=== PATIENT | male | born 1965 | race Two or more races ===

== ENCOUNTER 2025-01-24 05:55 | Inpatient (IN) | payer MEDICARE, SELFPAY ==
[2025-01-24] VITALS (49 sets, daily range): BP systolic 119–167; BP diastolic 67–125; PULSE 68–96; RESP 13–24; TEMP 36.2–36.7; O2SAT 93–100; BMI 55.0
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
--- NOTE | ~2025-01-24 | CT_ITS ---
EXAMINATION: CTA chest PE protocol DATE: 01/24/2025 07:39 INDICATION: Shortness of breath and hypoxia TECHNIQUE: Computed tomography (CT) pulmonary angiogram of the chest was performed with 100 mL Omnipaque-350 intravenous contrast. Additional 3D reconstructions utilizing coronal maximum intensity projection (MIP) were performed. Automated exposure control and iterative reconstruction technique were employed. The dose-length product was 1167.14 mGy-cm. COMPARISON: None FINDINGS: No evident pulmonary embolism. Sensitivity decreased in some of the smaller subsegmental pulmonary arteries due to adequate but suboptimal contrast opacification and small amount scattered motion artifact. Enlargement of the main pulmonary artery and right pulmonary arteries consistent with pulmonary a rterial hypertension. Basilar predominant diffuse bilateral smooth septal line thickening and few scattered groundglass opacities consistent with mild to moderate pulmonary edema. Trace bilateral pleural effusions. No correlate for the likely artifactual masslike opacity medial left lower lung zone on the prior radiographs. Mild cardiomegaly. No pericardial effusion. Thoracic aorta is normal in caliber. Calcified right hilar lymph nodes consistent with old granulomatous disease. No pathologically enlarged thoracic lymphadenopathy. Severe lower cervical and moderate thoracic spondylosis. IMPRESSION: 1. No pulmonary embolism. Sensitivity decreased in some of the smaller subsegmental pulmonary arteries due to combination of suboptimal contrast opacification and small mild respiratory motion. 2. Congestive heart failure with cardiomegaly and mild to moderate pulmonary edema. 3. Enlargement of the central and right pulmonary arteries consistent with pulmonary arterial hypertension. Reviewed, dictated and finalized at location A. IMPRESSION: 1. No pulmonary embolism. Sensitivity decreased in some of the smaller subsegme ntal pulmonary arteries due to combination of suboptimal contrast opacification and small mild respiratory motion. 2. Congestive heart failure with cardiomegaly and mild to moderate pulmonary ed mary jane. 3. Enlargement of the central and right pulmonary arteries consistent with pulm onary arterial hypertension.
--- NOTE | ~2025-01-24 | XR_ITS ---
EXAMINATION: XR chest 1V portable DATE: 01/24/2025 06:48 INDICATION: Shortness of breath TECHNIQUE: frontal view of the chest was obtained. COMPARISON: None FINDINGS: With basilar predominant diffuse increased interstitial pattern throughout both lungs. There are mild patchy airspace opacities in the bilateral lower lung zones. Indeterminate 3.5 cm masslike opacity projecting over the heart and the medial left lower lung zone. Calcified nodule in the lateral left lower lung zone and a couple calcified left hilar lymph nodes consistent with old granulomatous disease. No pneumothorax. Possible small left pleural effusion. Borderline heart size accounting for AP technique. IMPRESSION: 1. Likely congestive heart failure with cardiomegaly and mild to moderate basilar predominant pulmonary edema. Superimposed pneumonia not excludable. 2. Indeterminate 3.5 cm masslike opacity projecting over the medial left lower lung zone. Would recommend chest CT for further evaluation. Reviewed, dictated and finalized at location A. IMPRESSION: 1. Likely congestive heart failure with cardiomegaly and mild to moderate basil ar predominant pulmonary edema. Superimposed pneumonia not excludable. 2. Indeterminate 3.5 cm masslike opacity projecting over the medial left lower lung zone. Would recommend chest CT for further evaluation.
--- NOTE | 2025-01-24 06:05 | ECG_ITS ---
Test Date: 2025-01-24 06:04:38 Measurements Intervals [place] Rate: 95 P: 47 CA: 191 QRS: -53 QRSD: 136 T: 82 QT: 380 QTc: 479 Interpretive Statements SINUS RHYTHM LEFT AXIS DEVIATION LEFT ATRIAL ENLARGEMENT INTRAVENTRICULAR CONDUCTION DELAY POOR R WAVE PROGRESSION BASELINE ARTIFACT- I, II, III, AVR, AVL, AVF, V1, V6 BORDERLINE ECG No previous ECG available for comparison Electronically Signed On 01-24-2025 06:15:12 CDT by Yonatan Reddy D.O.
[2025-01-24 06:20] LABS: Hematocrit 45.4 % (42.0-52.0); Hemoglobin 14.2 g/dL (14.0-18.0); Immature Granulocyte Percent A 0.4 % (0-0.5); Lymphocytes Absolute Auto 1.28 K/mm3 (0.9-3.2); Mean Corpuscular HGB Conc 31.3 g/dl (32-36); Mean Corpuscular Hemoglobin 29.1 pg (26-34); Mean Corpuscular Volume 93.0 fl (80-100); Nucleated Red Blood Cells Absolute Auto 0.000 K/mm3 (0.0-0.012); Nucleated Red Blood Cells Perc 0.0 % (0.0-0.2); Platelet Count Result 189 k/mm3 (150-375); Red Blood Count 4.88 M/mm3 (4.6-6.20); White Blood Count 9.6 K/mm3 (4.5-10.0)
--- NOTE | 2025-01-24 06:21 | ED.GENADULT ---
HPI - General Adult General Chief complaint: Shortness of Breath/Dyspnea <Gerard Macdonald MD - Last Filed: 01/24/25 23:10> Stated complaint: Resp Distress <Gerard Macdonald MD - Last Filed: 01/24/25 23:10> Time Seen by Provider: 01/24/25 06:59 <Gerard Macdonald MD - Last Filed: 01/24/25 23:10> History of Present Illness HPI narrative: Patient is a 59-year-old male who presents to the emergency department this evening with complaint of shortness of breath. Per EMS report, patient called for respiratory distress. Upon arrival, patient was anxious, panic, tachypneic and hypoxic satting in the low 80s on room air. Patient admits that he does have a history of CHF and is supposed to be taking water pills but ran out a while ago and has not taken them in some time. Patient states that the shortness of breath has been ongoing for the past 2 weeks and has been progressively getting worse. Patient does not wear any oxygen at home. He was placed on a non-rebreather 15 L by EMS with improvement of his oxygenation to above 95%. He was also administered a DuoNeb breathing treatment on route prior to arrival to the ED. Patient is unsure of what medications he should be on but knows that he should be on meds that he is not taking. <Gerard Macdonald MD - Last Filed: 01/24/25 23:10> Related Data Home medications: Home Medications ?Medication ?Instructions ?Recorded ?Confirmed ?Last Taken ?Type carvedilol 25 mg tablet 25 mg PO Q12H 01/24/25 01/24/25 Unknown History hydrochlorothiazide 25 mg tablet 25 mg PO DAILY 01/24/25 01/24/25 Unknown History sacubitril 97 mg-valsartan 103 mg 1 tablet PO BID 01/24/25 01/24/25 Unknown History tablet (Entresto) spironolactone 25 mg tablet 25 mg PO DAILY 01/24/25 01/24/25 Unknown History <Gerard Macdonald MD - Last Filed: 01/24/25 23:10> Allergies/adverse reactions: Allergies Allergy/AdvReac Type Severity Reaction Status Date / Time No Known Allergies Allergy Verified 01/24/25 06:05 <Gerard Macdonald MD - Last Filed: 01/24/25 23:10> Review of Systems Review of Systems: All systems are reviewed and are negative unless stated otherwise in the HPI. <Gerard Macdonald MD - Last Filed: 01/24/25 23:10> PMFSH Family History Family History: Family History (Updated 01/24/25 @ 11:27 by Shara Lomeli RN) Father Cerebrovascular accident <Gerard Macdonald MD - Last Filed: 01/24/25 23:10> Social History Social History: Social History Smoking status: Never smoker Alcohol intake: never Substance use: never Lack of Transportation: No Lack of Food: Never True Current Housing: I Have Housing Concerned About Future Housing: YES Difficulty Paying Gas/Electric Bills: No Difficulty Paying for Meds: YES Currently Unemployed: No Education: Master's Degree or Higher Difficulty w/ Childcare or Family Care: No Spiritual care concerns: No <Gerard Macdonald MD - Last Filed: 01/24/25 23:10> Exam Narrative: General: Alert, awake, afebrile, in mild respiratory distress, obese. HEENT: PERRL, no rhinorrhea, no post nasal drip, oropharynx clear. Neck: Trachea midline, no JVD, no lymphadenopathy. Cardiovascular: Regular rate and rhythm, no murmurs, rubs or gallops, no peripheral edema. Respiratory: Diminished breath sounds in the lower lung chavez bilaterally, tachypnea, no wheezing, no rhonchi, no rubs, mild respiratory distress. Abdomen: Soft, nontender, nondistended, no rebound, no guarding, no peritoneal signs. Musculoskeletal: No joint swelling or deformity, normal muscle tone. Skin: No rashes or petechia, no signs of infection. Psychiatric: Alert and oriented, normal behavior and judgment for situation. Neurological: Alert and oriented to person, place, and time. Follows all commands. No focal deficits, speech is clear and fluent. <Gerard Macdonald MD - Last Filed: 01/24/25 23:10> Course Reevaluation(s) Reevaluation #1: Patient signed out to me pending CT. This does appear consistent with pulmonary edema. I did give patient a dose of Lasix, on my re-evaluation he is breathing much more comfortably, in no distress. Discussed with hospitalist admission for diuresis. Patient agreeable to plan. <Sera Alford MD - Last Filed: 01/24/25 09:29> Vital Signs Vital signs: Vital Signs Temperature 98.1 F 01/24/25 05:57 Pulse Rate 96 01/24/25 05:57 Respiratory Rate 24 H 01/24/25 05:57 Blood Pressure 167/125 H 01/24/25 05:57 Pulse Oximetry 100 01/24/25 05:57 Oxygen Delivery Non-Rebreather Mask 01/24/25 05:57 Oxygen Flow Rate 15 01/24/25 05:57 Temperature 97.6 F 01/24/25 19:23 Pulse Rate 77 01/24/25 22:00 Respiratory Rate 17 01/24/25 19:23 Blood Pressure 119/67 01/24/25 19:23 Pulse Oximetry 96 01/24/25 20:15 Oxygen Delivery Room Air 01/24/25 20:15 Oxygen Flow Rate 15 01/24/25 06:13 Fraction of Inspired Oxygen 21 01/24/25 20:15 <Gerard Macdonald MD - Last Filed: 01/24/25 23:10> Vital Signs Temperature 98.1 F 01/24/25 05:57 Pulse Rate 96 01/24/25 05:57 Respiratory Rate 24 H 01/24/25 05:57 Blood Pressure 167/125 H 01/24/25 05:57 Pulse Oximetry 100 01/24/25 05:57 Oxygen Delivery Non-Rebreather Mask 01/24/25 05:57 Oxygen Flow Rate 15 01/24/25 05:57 Temperature 97.6 F 01/24/25 19:23 Pulse Rate 77 01/24/25 22:00 Respiratory Rate 17 01/24/25 19:23 Blood Pressure 119/67 01/24/25 19:23 Pulse Oximetry 96 01/24/25 20:15 Oxygen Delivery Room Air 01/24/25 20:15 Oxygen Flow Rate 15 01/24/25 06:13 Fraction of Inspired Oxygen 21 01/24/25 20:15 <Sera Alford MD - Last Filed: 01/24/25 09:29> Medical Decision Making MDM Narrative Medical decision making narrative: The patient was evaluated by myself in the emergency department. History is obtained from patient who is an independent historian and physical exam was performed. External medical records were reviewed at this time. IV was established and pertinent tests were ordered. Patient was switched from the 15 L non-rebreather to BiPAP by respiratory therapist present at bedside. EKG was obtained which revealed sinus rhythm rate of 95 beats per minute, no evidence of acute ischemia within the limitation of the baseline artifact secondary to respiratory motion. EKG was independently interpreted by me and is currently pending official cardiology read. Patient was signed out to a.m. ED physician pending remainder of the workup. <Gerard Macdonald MD - Last Filed: 01/24/25 23:10> Vital Signs Vital Signs: Vital Signs Temperature 98.1 F 01/24/25 05:57 Pulse Rate 96 01/24/25 05:57 Respiratory Rate 24 H 01/24/25 05:57 Blood Pressure 167/125 H 01/24/25 05:57 Pulse Oximetry 100 01/24/25 05:57 Oxygen Delivery Non-Rebreather Mask 01/24/25 05:57 Oxygen Flow Rate 15 01/24/25 05:57 Temperature 97.6 F 01/24/25 19:23 Pulse Rate 77 01/24/25 22:00 Respiratory Rate 17 01/24/25 19:23 Blood Pressure 119/67 01/24/25 19:23 Pulse Oximetry 96 01/24/25 20:15 Oxygen Delivery Room Air 01/24/25 20:15 Oxygen Flow Rate 15 01/24/25 06:13 Fraction of Inspired Oxygen 21 01/24/25 20:15 <Gerard Macdonald MD - Last Filed: 01/24/25 23:10> Vital Signs Temperature 98.1 F 01/24/25 05:57 Pulse Rate 96 01/24/25 05:57 Respiratory Rate 24 H 01/24/25 05:57 Blood Pressure 167/125 H 01/24/25 05:57 Pulse Oximetry 100 01/24/25 05:57 Oxygen Delivery Non-Rebreather Mask 01/24/25 05:57 Oxygen Flow Rate 15 01/24/25 05:57 Temperature 97.6 F 01/24/25 19:23 Pulse Rate 77 01/24/25 22:00 Respiratory Rate 17 01/24/25 19:23 Blood Pressure 119/67 01/24/25 19:23 Pulse Oximetry 96 01/24/25 20:15 Oxygen Delivery Room Air 01/24/25 20:15 Oxygen Flow Rate 15 01/24/25 06:13 Fraction of Inspired Oxygen 21 01/24/25 20:15 <Sera Alford MD - Last Filed: 01/24/25 09:29> Lab Data Result diagrams: 01/24/25 06:14 01/24/25 06:14 <Gerard Macdonald MD - Last Filed: 01/24/25 23:10> Labs: Lab Results 01/24/25 01/24/25 Range/Units 06:12 06:14 WBC 9.6 (4.5-10.0) K/mm3 RBC 4.88 (4.6-6.20) M/mm3 Hgb 14.2 (14.0-18.0) g/dL Hct 45.4 (42.0-52.0) % MCV 93.0 (80-100) fl MCH 29.1 (26-34) pg MCHC 31.3 L (32-36) g/dl RDW 14.7 H (11.5-14.5) % Plt Count 189 (150-375) k/mm3 MPV 10.3 (7.4-10.4) fl Immature Gran % (Auto) 0.4 (0-0.5) % Neut % (Auto) 76.8 H (45.5-73.1) % Lymph % (Auto) 13.3 L (18.3-44.2) % [place] % (Auto) 6.5 (2.6-8.5) % Eos % (Auto) 2.8 (0-4.4) % Baso % (Auto) 0.2 (0.2-1.2) % Lymph # (Auto) 1.28 (0.9-3.2) K/mm3 [place] # (Auto) 0.6 (0.1-0.6) K/mm3 Eos # (Auto) 0.3 (0-0.3) K/mm3 Baso # (Auto) 0.0 (0.0-0.1) K/mm3 Abs Immat Gran (auto) 0.04 H (0.00-0.031) K/mm3 Absolute Neuts (auto) 7.4 H (1.3-6.7) K/mm3 Absolute Nucleated RBC 0.000 (0.0-0.012) K/mm3 Nucleated RBC % 0.0 (0.0-0.2) % PT 13.7 (11.1-14.7) Seconds INR 1.1 APTT 33.3 (22.3-36.8) Seconds Methemoglobin 0.2 (0-1.5) %THb Sodium 138 (137-145) mmol/L Potassium 4.3 (3.4-5.0) mmol/L Chloride 105 (98-107) mmol/L Carbon Dioxide 27 (22-30) mmol/L Anion Gap 6 (4-12) mmol/L BUN 18 (9-20) mg/dL Creatinine 0.98 (0.7-1.3) mg/dL Estim Creat Clear Calc 122 ml/min Estimated GFR > 60 (59 - ) Glucose 113 H (65-110) mg/dL Calcium 8.5 (8.4-10.2) mg/dL Magnesium 2.0 (1.6-2.3) mg/dL Total Bilirubin 1.1 (0.2-1.3) mg/dL AST 21 (17-59) U/L ALT 15 (6-50) U/L Alkaline Phosphatase 67 (38-126) U/L Troponin I 0.033 (0.000-0.034) ng/mL NT-Pro-B Natriuret Pep 2400 H (19.9-100) pg/mL Total Protein 7.2 (6.3-8.2) g/dL Albumin 3.8 (3.5-5.1) g/dL Influenza A (RT-PCR) Negative (Negative) Influenza B (RT-PCR) Negative (Negative) RSV (RT-PCR) Negative (Negative) SARS-CoV-2 RNA (RT-PCR) Negative (Negative) <Gerard Macdonald MD - Last Filed: 01/24/25 23:10> Lab Results 01/24/25 01/24/25 Range/Units 06:12 06:14 WBC 9.6 (4.5-10.0) K/mm3 RBC 4.88 (4.6-6.20) M/mm3 Hgb 14.2 (14.0-18.0) g/dL Hct 45.4 (42.0-52.0) % MCV 93.0 (80-100) fl MCH 29.1 (26-34) pg MCHC 31.3 L (32-36) g/dl RDW 14.7 H (11.5-14.5) % Plt Count 189 (150-375) k/mm3 MPV 10.3 (7.4-10.4) fl Immature Gran % (Auto) 0.4 (0-0.5) % Neut % (Auto) 76.8 H (45.5-73.1) % Lymph % (Auto) 13.3 L (18.3-44.2) % [place] % (Auto) 6.5 (2.6-8.5) % Eos % (Auto) 2.8 (0-4.4) % Baso % (Auto) 0.2 (0.2-1.2) % Lymph # (Auto) 1.28 (0.9-3.2) K/mm3 [place] # (Auto) 0.6 (0.1-0.6) K/mm3 Eos # (Auto) 0.3 (0-0.3) K/mm3 Baso # (Auto) 0.0 (0.0-0.1) K/mm3 Abs Immat Gran (auto) 0.04 H (0.00-0.031) K/mm3 Absolute Neuts (auto) 7.4 H (1.3-6.7) K/mm3 Absolute Nucleated RBC 0.000 (0.0-0.012) K/mm3 Nucleated RBC % 0.0 (0.0-0.2) % PT 13.7 (11.1-14.7) Seconds INR 1.1 APTT 33.3 (22.3-36.8) Seconds Methemoglobin 0.2 (0-1.5) %THb Sodium 138 (137-145) mmol/L Potassium 4.3 (3.4-5.0) mmol/L Chloride 105 (98-107) mmol/L Carbon Dioxide 27 (22-30) mmol/L Anion Gap 6 (4-12) mmol/L BUN 18 (9-20) mg/dL Creatinine 0.98 (0.7-1.3) mg/dL Estim Creat Clear Calc 122 ml/min Estimated GFR > 60 (59 - ) Glucose 113 H (65-110) mg/dL Calcium 8.5 (8.4-10.2) mg/dL Magnesium 2.0 (1.6-2.3) mg/dL Total Bilirubin 1.1 (0.2-1.3) mg/dL AST 21 (17-59) U/L ALT 15 (6-50) U/L Alkaline Phosphatase 67 (38-126) U/L Troponin I 0.033 (0.000-0.034) ng/mL NT-Pro-B Natriuret Pep 2400 H (19.9-100) pg/mL Total Protein 7.2 (6.3-8.2) g/dL Albumin 3.8 (3.5-5.1) g/dL Influenza A (RT-PCR) Negative (Negative) Influenza B (RT-PCR) Negative (Negative) RSV (RT-PCR) Negative (Negative) SARS-CoV-2 RNA (RT-PCR) Negative (Negative) <Sera Alford MD - Last Filed: 01/24/25 09:29> ABG Data ABG results: 01/24/25 06:12 Puncture Site Right radial ABG pH 7.271 L* ABG pCO2 65.2 H* ABG pO2 < 27.0 L* ABG PO2/FiO2 Ratio Not Reportable ABG HCO3 29.3 H ABG O2 Saturation Not Reportable ABG O2 Content Not Reportable ABG Base Excess 0.7 A-a Gradient Not Reportable Oxyhemoglobin 52.6 L* Carboxyhemoglobin 1.3 Reduced Hemoglobin 45.9 H Total Hemoglobin 14.5 O2 Delivery Device Non-rebreather mask O2 Liters/Min 15.0 FiO2 100 <Gerard Macdonald MD - Last Filed: 01/24/25 23:10> 01/24/25 06:12 Puncture Site Right radial ABG pH 7.271 L* ABG pCO2 65.2 H* ABG pO2 < 27.0 L* ABG PO2/FiO2 Ratio Not Reportable ABG HCO3 29.3 H ABG O2 Saturation Not Reportable ABG O2 Content Not Reportable ABG Base Excess 0.7 A-a Gradient Not Reportable Oxyhemoglobin 52.6 L* Carboxyhemoglobin 1.3 Reduced Hemoglobin 45.9 H Total Hemoglobin 14.5 O2 Delivery Device Non-rebreather mask O2 Liters/Min 15.0 FiO2 100 <Sera Alford MD - Last Filed: 01/24/25 09:29> Critical Care Time Critical Care Time Critical Care Time: Yes <Sera Alford MD - Last Filed: 01/24/25 09:29> Total Critical Care Time: 45 <Sera Alford MD - Last Filed: 01/24/25 09:29> Discharge Plan Discharge Clinical Impression: Acute exacerbation of CHF (congestive heart failure), Acute hypoxic respiratory failure <Gerard Macdonald MD - Last Filed: 01/24/25 23:10> Patient Disposition: Still a Patient <Gerard Macdonald MD - Last Filed: 01/24/25 23:10> Condition: Serious <Gerard Macdonald MD - Last Filed: 01/24/25 23:10>
[2025-01-24 06:22] LABS: Carboxyhemoglobin 1.3 % THb (0-2.0); Fractional Inspired Oxygen 100 %; HCO3 ABG 29.3 mEq/l (22.0-26.0); Methemoglobin ABG 0.2 %THb (0-1.5); Reduced Hemoglobin 45.9 %THb (0-5.0)
[2025-01-24 06:32] LABS: Alanine Aminotransferase 15 U/L (6-50); Albumin Level 3.8 g/dL (3.5-5.1); Alkaline Phosphatase 67 U/L (38-126); Anion Gap 6 mmol/L (4-12); Aspartate Amino Transferase 21 U/L (17-59); Bilirubin,Total 1.1 mg/dL (0.2-1.3); Blood Urea Nitrogen 18 mg/dL (9-20); Calcium 8.5 mg/dL (8.4-10.2); Carbon Dioxide 27 mmol/L (22-30); Chloride 105 mmol/L (98-107); Estimated CRCL calculation 122 ml/min; Estimated Glomerular Filt Rate > 60; Glucose 113 mg/dL (65-110); Magnesium 2.0 mg/dL (1.6-2.3); Potassium 4.3 mmol/L (3.4-5.0); Sodium 138 mmol/L (137-145); Total Protein 7.2 g/dL (6.3-8.2)
[2025-01-24 06:40] LABS: INR 1.1; Prothrombin Time 13.7 Seconds (11.1-14.7)
[2025-01-24 06:41] LABS: Partial Thromboplastin Time 33.3 Seconds (22.3-36.8)
[2025-01-24 06:43] LABS: NT Pro B Type Natriuretic Pept 2400 pg/mL (19.9-100); Troponin I 0.033 ng/mL (0.000-0.034)
[2025-01-24 06:49] LABS: PCO2 ABG 65.2 mmHg (35.0-45.0); PO2 ABG < 27.0 mmHg (80.0-100.0)
[2025-01-24 06:50] LABS: Liters per Minute 15.0 LPM; Modified Allen's Test Pass; Site Drawn RIGHT RADIAL
--- OUTSIDE RECORDS SUMMARY | 2025-01-24 06:53 | XMS_ITS | Clinical Summary ---
Author Organization [facility] Address [address] [place] [address] Care Team Providers Care Field Sales Trainer Name Role Phone Pietro Benton MD Unavailable [phone] Juve Sanchez MD Primary Care Provider [phone] Source Comments [facility],non-owned Affiliates and Associated Physician Practices is amultiple site organization consisting of ambulatory clinics and hospital sitesin [place], [place], [place] and [place]. This disclosure is being madepursuant to the Care Everywhere program and may not contain all information available regarding this patient. Last updated 18.[facility] Allergies No known active allergies Medications * Be aware that medications may not be up to date on this document. Alwaysverify current medications with the patient. aspirin (Aspirin) 81 MG chew tablet CHEW AND SWALLOW 1 TABLET BY MOUTH EVERY DAY 90 tablet 3 2 Active atorvastatin (Lipitor) 20 MG tablet Take 1 (one) tablet by mouth at bedtime 90 tablet 3 3 Active furosemide (Lasix) 40 MG tablet TAKE 1 TABLET BY MOUTH TWICE DAILY 180 tablet 3 3 Active acetaminophen (Tylenol) 325 MG tablet Take 2 (two) tablets by mouth every 4 hours as needed Maximum allowable Acetaminophen amount = 4 Grams (4000 mg) / 24 hours. 50 tablet 4 Active cefdinir (Omnicef) 300 MG capsule Take 1 (one) capsule by mouth 2 times daily 20 capsule 4 Active Additional Information Patient not taking.Reported on 12/01/2023 spironolactone (Aldactone) 25 MG tablet Take 1 (one) tablet by mouth once daily 90 tablet 3 4 Active sacubitril-gillian sartan (Entresto) 49-51 MG tablet Take 1 (one) tablet by mouth 2 times daily 180 tablet 3 4 Active carvedilol (Coreg) 25 MG tablet Take 1 (one) tablet by mouth 2 times daily with morning and evening meal 180 tablet 4 4 Active Active Problems Problem Noted Date Diagnosed Date Acute cystitis without hematuria 07/29/2023 Hematuria, unspecified type 07/29/2023 Sepsis, due to unspecified o rganism, unspecified whether acute organ dysfunction present 07/29/2023 Chest pain 04/22/2021 SOB (shortness of breath) 03/29/2018 Chronic renal failure 03/29/2018 HFrEF (heart failure with reduced ejection fract ion) 03/29/2018 Calf swelling 03/29/2018 Essential hypertension 03/29/2018 Resolved Problems Problem Noted Date Diagnosed Date Resolved Date Wheezing 04/22/2021 12/01/2023 Immunizations Immunization Administration Dates Next Due RadarChile primary monoval ent 12+ yr 0.3mL Purple cap 04/24/2021 INFLUENZA VACCINE, QUADR. (F LUZONE; FLULAVAL; FLUARIX; AFLURIA QUADRIVALENT; 6MO+), 0.5 ML (IIV4) 08/02/2023,04/24/2021 Social History Tobacco Use Types Packs/Day Years Used Date Smoking Tobacco: Never Smokeless Tobacco: Never Tobacco Cessation:Counseling Given: Not Answered Alcohol Use Standard Drinks/Week Comments No 0 (1 standard drink = 0.6 oz pur e alcohol) AUDIT-C Answer Date Recorded Q1: How often do you have a drink containing alcohol? Never 07/31/2023 Q2: How many drinks containi ng alcohol do you have on a typical day when you are drinking? Patient does not drink Q3: How often do you have si x or more drinks on one occasion? Never 07/31/2023 Overall Financial Resource Strain (CARDIA) Answe r Date Recorded How hard is it for you to pa y for the very basics like food, housing, medical care, and heating? Not hard at all 07/31/2023 PHQ-2 Answer Date Recorded PHQ2 TOTAL SCORE 0 03/20/2022 [facility] - Occupational Stress Questionnaire Answer Date Recorded Do you feel stress - tense, restless, nervous, or anxious, or unable to sleep at night because your mind is troubled all the time - these days? Not at all 07/31/2023 Hunger Vital Sign Answer Date Recorded Within the past 12 months, y ou worried that your food would run out before you got the money to buy more. Never true 07/31/19 24 Within the past 12 months, t he food you bought just didn't last and you didn't have money to get more. Never true 07/31/2023 PRAPARE - Transportation Answer Date Re corded In the past 12 months, has l ack of transportation kept you from medical appointments or from getting medications? No 07/04 In the past 12 months, has l ack of transportation kept you from meetings, work, or from getting things needed for daily living? No 07/31/2023 Housing Stability Vital Sign Answer Ulysses e Recorded In the last 12 months, was t here a time when you were not able to pay the mortgage or rent on time? No 07/31/2023 In the last 12 months, how many places have you lived? 1 07/31/2023 In the last 12 months, was t here a time when you did not have a steady place to sleep or slept in a fci (including now)? No 07/31/2023 Sex and Gender Information Value Date Recorded Sex Assigned at Not on file Legal Sex Male 6:27 AM DADO OPERATOR Gender Identity Not on file Sexual Orientation Not on file Last Filed Vital Signs Vital Sign Reading Time Taken Comments Blood Pressure 150/84 12/01/2023 2:16 PM CDT Pulse 80 12/01/2023 2:16 PM CDT Temperature 36.3 C (97.3 F) 08/02/2023 9:40 AM DADO OPERATOR Respiratory Rate 18 08/02/2023 9:40 AM DADO OPERATOR Oxygen Saturation 98% 08/02/2023 9:40 AM DADO OPERATOR Inhaled Oxygen Concentration - - Weight 179.2 kg (395 lb) 12/01/2023 2:16 PM CDT Height 180.3 cm (5' 11) 07/30/2023 3:15 AM DADO OPERATOR Body Mass Index 55.09 07/30/2023 3:15 AM DADO OPERATOR Plan of Treatment Health Maintenance Due Date Last Done Comments COLOGUARD (AGES 45-75) - COLON CA SCREENING 1963 COLON MONITORING 1963 COLONOSCOPY - COLON CA SCREENING 1963 CT COLONOGRAPHY - COLON CA SCREENING 1963 Colorectal Cancer Screening 1963 FIT - COLON CA SCREENING 1963 FLEX SIG - COLON CA SCREENING 1963 HIV SCREENING 1978 HEPATITIS C SCREENING 05/24/1981 DTAP/TDAP/TD VACCINES (1 - Tdap) 1982 PNEUMOCOCCAL VACCINE 50+ (1 of 1 - PCV) 2013 ZOSTER VACCINE (1 of 2) 2013 Respiratory Syncytial Virus (RSV) Vaccine Pt: or over 60 yrs (1 - Risk 60-74 years 1-dose series) 2023 COVID-19 VACCINE ( season) 2024 04/24/2021, 07/16/2020, 06/25/2020 DEPRESSION SCREENING 06/02/2024 03/20/2022 INFLUENZA VACCINE (#1) 2025 08/02/2023, 2020 SCREENING FOR DIABETES 08/01/2026 , 08/01/2023, 07/31/2023, Additional history exists HEPATITIS B VACCINE Aged Out No longe r eligible based on patient's age to complete this topic HIB VACCINE Aged Out No longer eligi ble based on patient's age to complete this topic HPV VACCINE Aged Out No longer eligi ble based on patient's age to complete this topic MENINGOCOCCAL (Group B) VACCINE SHARED DECISION-MAKING Aged Out No longer eligible based on patient's age to complete this topic MENINGOCOCCAL GROUPS A/C/Y/W VACCINE Aged Out No longer eligible based on patient's age to complete this topic Procedures Procedure Name Priority Date/Time Associated Diagnosis Comments RENAL FUNCTION PANEL STAT 08/02/2023 1:46 AM DADO OPERATOR from Last 3 Months or Most Recently Relevant to Health Maintenance Results * (ABNORMAL) RENAL FUNCTION PANEL (08/02/2023 1:46 AM [facility] Glucose 88 70 - 105 mg/dL 08/02/2023 2:06 AM [facility] Sodium 141 136 - 145 mmol/L 08/02/2023 2:06 AM [facility] Potassium 3.9 3.5 - 5.1 mmol/L 08/02/2023 2:06 AM [facility] Chloride 111(H) 98 - 107 mmol/L 08/02/2023 2:06 AM [facility] CO2 23 22 - 29 mmol/L 08/02/2023 2:06 AM [facility] Calcium 8.5 8.4 - 10.4 mg/dL 08/02/2023 2:06 AM [facility] Anion Gap 7 6 - 16 mmol/L 08/02/2023 2:06 AM [facility] BUN 14 7 - 26 mg/dL 08/02/2023 2:06 AM [facility] Creatinine 0.93 0.72 - 1.25 mg/dL 08/02/2023 2:06 AM [facility] Albumin 2.6(L) 3.4 - 5.0 gm/dL 08/02/2023 2:06 AM [facility] Phosphorus 3.1 2.3 - 4.7 mg/dL 08/02/2023 2:06 AM [facility] eGFR by CKD-EPI >90 >=90 mL/min/1.7 3 m2 08/02/2023 2:06 AM [facility] Blood BLOOD SPECIMEN / Unknown Lab Venipuncture / Unknown 08/02/2023 1:46 AM DADO OPERATOR 08/02/2023 1:45 AM [facility] Anika Cancino MD LAB - CHEMISTRY ORDERABLE S Final Result [facility] [address] [place] [address] from Last 3 Months or Most Recently Relevant to Health Maintenance Insurance [place] [id number] [address] [place] [id number] [facility] INDIVIDUAL EXCHANGE [place] [address] [employer] [place] [id number] [employer] [place] [address] [employer] [place] [address] [place] [address] [employer]YOR GENERIC Member Subscriber Plan / Payer (Ef fective 2022-Present) Name:Louis Bañuelos Relation to Subscriber:Self Name:Louis Bañuelos Payer ID:Not on file Group ID:Not on file Type:Worker's Comp Address: att work comp procesing [id number] [place] [id number] Advance Directives * Full Code (Latest Code Status on File) Date Activated Date Inactivated Comments 07/30/2023 8:33 AM 08/02/2023 2:32 PM * Full Code Date Activated Date Inactivated Comments 04/23/2021 2:52 AM 04/27/2021 4:23 PM * Full Code Date Activated Date Inactivated Comments 04/22/2021 6:33 PM 04/23/2021 2:52 AM * Full Code Date Activated Date Inactivated Comments 03/29/2018 7:42 PM 04/01/2018 1:57 PM * Full Code Date Activated Date Inactivated Comments 03/29/2018 6:38 PM 03/29/2018 7:42 PM Care Teams Field Sales Trainer Relationship Specialty Start Date End Date Juve Sanchez MD [facility] [address] [place] [address] PCP - General Family Medicine 04/01/22 Pietro Benton MD [address] [address] Cardiology 04/18/20
--- OUTSIDE RECORDS SUMMARY | 2025-01-24 06:53 | XMS_ITS | Clinical Summary ---
Author Organization [facility] Address [address] [place] [address] Phone Care Team Providers Care Welt Edge Rounder Name Role Phone Willa Maldonado MD Primary Care Provide r Allergies No known active allergies Medications spironolactone (ALDACTONE) 25 mg tablet Take 25 mg by mouth daily. Active sacubitriL-valsar arriaga (ENTRESTO) 97-103 mg Tablet Take 1 Tablet by mouth 2 times daily. 200 Tablet 3 02/13/2024 Active hydroCHLOROthiazi de 25 mg tabletIndications :Accelerated hypertension Take 1 Tablet (25 mg) by mouth daily. 90 Tablet 03/02/2024 Active carvediloL (COREG) 25 mg tabletIndications :Accelerated hypertension Take 1 Tablet (25 mg) by mouth 2 times daily with meals. 180 Tablet 1 03/02/2024 Active dapagliflozin propanediol (Farxiga) 10 mg Tablet Take 1 Tablet (10 mg) by mouth daily in the morning. 03/16/2024 Active Active Problems Problem Noted Date Diagnosed Date Acute cystitis without hematuria 07/29/2023 Sepsis 07/29/2023 Chest pain 04/22/2021 Calf swelling 03/29/2018 Chronic renal failure 03/29/2018 SOB (shortness of breath) 03/29/2018 Abnormal EKG 08/22/2016 Accelerated hypertension 08/22/2016 Obesity 08/22/2016 Leukocytosis 08/22/2016 Benign hypertension 02/25/2006 Hematuria 02/25/2006 Congestive heart failure Hypertensive urgency Encounters Date Type Department Care Team Description 01/18/2025 External Device Data [facility] ABSTRACTION Provider, Abstract 12/15/2024 External Device Data [facility] ABSTRACTION Provider, Abstract 12/15/2024 External Device Data [facility] ABSTRACTION Provider, Abstract 12/15/2024 External Device Data [facility] ABSTRACTION Provider, Abstract 12/14/2024 External Device Data [facility] ABSTRACTION Provider, Abstract 11/17/2024 External Device Data [facility] ABSTRACTION Provider, Abstract 11/16/2024 External Device Data [facility] ABSTRACTION Provider, Abstract 11/11/2024 Telephone [facility] [address] [place] [address] Trey Laurent MD Medication cost 11/08/2024 Telephone [facility] [address] [place] [address] Trey Laurent MD Medication Question from Last 3 Months Immunizations Immunization Administration Dates Next Due INFLUENZA VACCINE QUADRIVALENT 6 MOS UP PF IM ,04/24/2021 INFLUENZA VACCINE TRIVALENT SPLIT VIRUS, (6 MOS UP), 0.5ML (PF), IM 03/16/2024 Family History Medical History Relation Name Comments Unknown Father Unknown Mother Relation Name Status Comments Father Mother Social History Tobacco Use Types Packs/Day Years Used Date Smoking Tobacco: Never Passive Smoke Exposure: Never Smokeless Tobacco: Never Tobacco Cessation:Counseling Given: Not Answered Alcohol Use Standard Drinks/Week Comments No 0 (1 standard drink = 0.6 oz pur e alcohol) Sex and Gender Information Value Date Recorded Sex Assigned at Not on file Legal Sex Male 12:44 PM CDT Gender Identity Not on file Sexual Orientation Not on file Last Filed Vital Signs Vital Sign Reading Time Taken Comments Blood Pressure 136/70 03/19/2024 7:47 AM CDT Pulse 87 03/19/2024 7:47 AM CDT Temperature 36.3 C (97.3 F) 03/16/2024 10:44 AM CDT Respiratory Rate 22 08/25/2016 10:52 AM CDT Oxygen Saturation 98% 03/19/2024 7:47 AM CDT Inhaled Oxygen Concentration - - Weight 172.8 kg (381 lb) 03/19/2024 7:47 AM CDT Height 180.3 cm (5' 11) 03/19/2024 7:47 AM CDT Body Mass Index 53.14 03/19/2024 7:47 AM CDT Plan of Treatment Upcoming Encounters Date Type Department Care Team (Late st Contact Info) Description 03/08/2025 12:30 PM CDT Office Visit [facility] - [address] [place] [address] Willa Maldonado MD [address] [place] [address] Health Maintenance Due Date Last Done Comments DTAP/TDAP/TD VACCINES (1 - Tdap) 1982 COLORECTAL SCREENING 2008 Colorectal Cancer Screening 2008 FIT-DNA Q 3 years 2008 FIT/FOBT Q 1 year 2008 Flex Sig/CT Colonography Q 5 years 2008 ZOSTER VACCINE (1 of 2) 2013 Pre-Diabetes and Diabetes Screening 08/23/201908/22 RSV VACCINE (60+ or ) (1 - Risk 60-74 years 1-dose series) 2023 COVID-19 Vaccine ( - 2023- season) 2024 04/24/2021, 07/16/2020, 06/25/2020 INFLUENZA VACCINE (#1) 2024 , 08/02/2023, 04/24/2021 Goals Goal Patient Goal Type Associated Problems Recent Progress Patient-Stated? Author HYPERTENSIO N CARE PLAN GOAL Care Plan RYAN MYC HYPERTENSION CARE PLAN PROBLEM No Willa Maldondao MD Procedures Procedure Name Priority Date/Time Associated Diagnosis Comments HEMOGLOBIN A1C Add on 08/22/2016 3:09 PM CDT from Last 3 Months or Most Recently Relevant to Health Maintenance Results * HEMOGLOBIN A1C (08/22/2016 3:09 PM CDT) HEMOGLOBIN A1C 5.6 4.0 - 6.0 % 08/22/2016 6:57 PM CDT [facility] Comment:Note: Effective as o f 06/23/2015 a new methodology, Turbidimetric inhibition immunoassay (TINIA),has been implemented. EST. AVG GLUCOSE, A1C 114 mg/dL 08/22/2016 6:57 PM CDT [facility] Blood Venipuncture / Unknown 08/22/2016 3:09 PM CDT 08/22/2016 3:13 PM CDT Lali Chavis LICENSED PSYCHOLOGIST MANAGER CHEMISTRY ORDERABLES Shelby l Result [facility] CLIA# [id number] [address] [place] [address] from Last 3 Months or Most Recently Relevant to Health Maintenance Additional Health Concerns Active Problems Noted Date Diagnosed Date RYAN MYC HYPERTENSION CARE PLAN PROBLEM 4 Advance Directives For more information, please contact: [phone] * Full Code (Latest Code Status on File) Date Activated Date Inactivated Comments 08/22/2016 6:58 PM 08/25/2016 7:33 PM * Full Code Date Activated Date Inactivated Comments 08/22/2016 6:26 PM 08/22/2016 6:58 PM Care Teams Welt Edge Rounder Relationship Specialty Start Date End Date Willa Maldonado MD [address] [place] [address] PCP - General Family Practice 03/02/24
[2025-01-24] MEDS: FUROSEMIDE INJ 40 MG/4 ML VIAL IV PUSH ×2 (07:13→17:32)
[2025-01-24 07:29] LABS: Influenza A QL RT-PCR Negative (Negative); Influenza B QL RT-PCR Negative (Negative); RSV RNA, RT-PCR Negative (Negative); SARS-CoV-2 RNA PCR Negative (Negative)
--- NOTE | 2025-01-24 09:49 | ECG_ITS ---
Test Date: 2025-01-24 10:37:36 Measurements Intervals [place] Rate: 75 P: 52 DE: 165 QRS: -49 QRSD: 141 T: 107 QT: 415 QTc: 465 Interpretive Statements SINUS RHYTHM WITH OCCASIONAL VENTRICULAR PREMATURE COMPLEXES LEFT AXIS DEVIATION LEFT ATRIAL ENLARGEMENT INCOMPLETE LEFT BUNDLE BRANCH BLOCK POOR R WAVE PROGRESSION BORDERLINE ST-T WAVE ABNORMALITY- HIGH LATERAL LEADS BASELINE ARTIFACT- I, II, AVR, AVL, AVF ABNORMAL ECG Compared to ECG 01/24/2025 06:04:38 NO SIGNIFICANT CHANGE Electronically Signed On 01-24-2025 10:41:32 CDT by Yonatan Reddy D.O.
[2025-01-24 10:38] LABS: Troponin I 0.062 ng/mL (0.000-0.034)
--- NOTE | 2025-01-24 11:56 | PC.NURSE ---
This patient, Louis Bañuelos, was received from ED on 01/24/25 at 1059. Patient/family oriented to unit policies and routines This patient, Louis Bañuelos, was admitted to IMU Room 201-01. Patient/family oriented to hospital policies and general routines including ID bracelet, bed and alarms, visiting hours, pain management, procedures, bathroom and other care routines, personal items, smoking policy, room service/diet, and visiting hours. Information on how to activate the Rapid Response Team has been discussed. Patient/Family are encouraged to report perceived risks to care and to ask questions if they do not understand what they are told or what they should do.
[2025-01-24 12:50] LABS: Troponin I 0.058 ng/mL (0.000-0.034)
[2025-01-24] MEDS: ACETAMINOPHEN 325 MG TABLET 650 MG PO ×2 (14:16→21:44)
--- NOTE | 2025-01-24 15:20 | PM.IMHP ---
H&P: HPI History of Present Illness Date/Time: 01/24/25 15:20 Chief Complaint: Shortness of breath Narrative: This is a 59-year-old male who presents to the ED with complaints of shortness of breath. This has been progressively getting worse over past few weeks however got really worse yesterday and he called EMS because of respiratory distress. Upon arrival of the EMS patient was anxious panicking tachypneic and hypoxic in low 80s on room air. Patient does not wear any oxygen at home. He was placed in on non-rebreather 15 L by EMS with improvement in his oxygenation to above 90%. He also received a DuoNeb treatment EN route to the ED. In the ED he was in mild respiratory distress with diminished breath sounds in lung chavez he was placed on a BiPAP for his respiratory distress. He was hypertensive on arrival to the ED and mildly tachycardic EKG showed sinus rhythm with no acute ST-T changes. Laboratory studies shows WBC of 9.6 hemoglobin of 14.2 platelet count 189. Chem panel showed 138 of sodium potassium throat 4.3 bicarbonate 27 BUN 18 creatinine 0.9 blood glucose of 113. PT INR of 1.1 APTT 33.3. LFTs were normal troponin was negative at 0.033 BNP was elevated at 2400. Influenza RSV COVID swab was negative. VBG was obtained in the ER which showed 7.27/65/less than 27/29. Chest x-ray showed likely congestive heart failure with cardiomegaly and [id number] basilar predominant pulmonary edema. Superimposed pneumonia not excludable. Indeterminate 3.5 cm masslike opacity projecting over the medial left lower lung zone. CTA chest was performed subsequently which showed no PE. Congestive heart failure with cardiomegaly and [id number] pulmonary edema. Enlargement of the central and right pulmonary arteries consistent with pulmonary artery hypertension. He received IV Lasix 40 mg with diuresis and improvement. He is admitted for further treatment Review of Systems Review of Systems: - CONSTITUTIONAL: Denies weight loss, fever and chills. - HEENT: Denies changes in vision and hearing - RESPIRATORY: Reports SOB and denies cough. - CV: Denies palpitations and CP. - GI: Denies abdominal pain, nausea, vomiting and diarrhea. - : Denies dysuria and urinary frequency. - MSK: Denies myalgia and joint pain. - SKIN: Denies rash and pruritus. - NEUROLOGICAL: Denies headache and syncope. - PSYCHIATRIC: Denies recent changes in mood. Denies anxiety and depression. [facility] Family History Family History (Updated 01/24/25 @ 11:27 by Shara Lomeli RN) Father Cerebrovascular accident Social History Social History Smoking status: Never smoker Alcohol intake: never Substance use: never Lack of Transportation: No Lack of Food: Never True Current Housing: I Have Housing Concerned About Future Housing: YES Difficulty Paying Gas/Electric Bills: No Difficulty Paying for Meds: YES Currently Unemployed: No Education: Master's Degree or Higher Difficulty w/ Childcare or Family Care: No Spiritual care concerns: No Meds Home Medications and Allergies Home Medications ?Medication ?Instructions ?Recorded ?Confirmed ?Type carvedilol 25 mg tablet 25 mg PO Q12H 01/24/25 01/24/25 History hydrochlorothiazide 25 mg tablet 25 mg PO DAILY 01/24/25 01/24/25 History sacubitril 97 mg-valsartan 103 mg 1 tablet PO BID 01/24/25 01/24/25 History tablet (Entresto) spironolactone 25 mg tablet 25 mg PO DAILY 01/24/25 01/24/25 History Allergies Allergy/AdvReac Type Severity Reaction Status Date / Time No Known Allergies Allergy Verified 01/24/25 06:05 Vital Signs Vital Signs - 24 hr 01/24/25 05:57 01/24/25 06:00 01/24/25 06:08 Temperature 98.1 F 97.1 F L Pulse Rate 96 89 Respiratory Rate 24 H 18 Blood Pressure 167/125 H 167/125 H Pulse Oximetry 100 100 100 Oxygen Delivery Non-Rebreather Mask Non-Rebreather Mask Oxygen Flow Rate 15 15 Fraction of Inspired Oxygen 01/24/25 06:13 01/24/25 06:21 01/24/25 06:30 Temperature Pulse Rate 83 80 Respiratory Rate 14 15 Blood Pressure Pulse Oximetry 100 100 100 Oxygen Delivery Non-Rebreather Mask Oxygen Flow Rate 15 Fraction of Inspired Oxygen 01/24/25 06:31 01/24/25 06:45 01/24/25 06:46 Temperature Pulse Rate 79 84 81 Respiratory Rate 17 14 16 Blood Pressure 149/125 H 154/120 H Pulse Oximetry 98 100 97 Oxygen Delivery Oxygen Flow Rate Fraction of Inspired Oxygen 01/24/25 06:49 01/24/25 06:51 01/24/25 07:00 Temperature Pulse Rate 87 85 78 Respiratory Rate 17 16 14 Blood Pressure 147/114 H Pulse Oximetry 100 100 100 Oxygen Delivery BiPAP Oxygen Flow Rate Fraction of Inspired Oxygen 01/24/25 07:01 01/24/25 07:15 01/24/25 07:16 Temperature Pulse Rate 82 80 82 Respiratory Rate 13 17 14 Blood Pressure 156/114 H 159/117 H Pulse Oximetry 99 100 94 Oxygen Delivery Oxygen Flow Rate Fraction of Inspired Oxygen 01/24/25 07:17 01/24/25 07:41 01/24/25 07:45 Temperature Pulse Rate 79 85 81 Respiratory Rate 14 14 15 Blood Pressure Pulse Oximetry 100 100 100 Oxygen Delivery Oxygen Flow Rate Fraction of Inspired Oxygen 01/24/25 08:00 01/24/25 08:15 01/24/25 08:15 Temperature Pulse Rate 73 76 78 Respiratory Rate 16 14 Blood Pressure Pulse Oximetry 100 100 Oxygen Delivery Oxygen Flow Rate Fraction of Inspired Oxygen 01/24/25 08:30 01/24/25 08:45 01/24/25 09:00 Temperature Pulse Rate 77 68 72 Respiratory Rate 17 14 15 Blood Pressure Pulse Oximetry 100 100 100 Oxygen Delivery Oxygen Flow Rate Fraction of Inspired Oxygen 01/24/25 09:15 01/24/25 09:30 01/24/25 09:43 Temperature Pulse Rate 78 Respiratory Rate 18 Blood Pressure 158/107 H Pulse Oximetry 100 100 100 Oxygen Delivery Oxygen Flow Rate Fraction of Inspired Oxygen 01/24/25 09:45 01/24/25 10:00 01/24/25 10:02 Temperature Pulse Rate Respiratory Rate Blood Pressure 147/101 H Pulse Oximetry 100 100 100 Oxygen Delivery Oxygen Flow Rate Fraction of Inspired Oxygen 01/24/25 10:15 01/24/25 10:16 01/24/25 10:30 Temperature Pulse Rate 79 71 73 Respiratory Rate 17 13 15 Blood Pressure 167/111 H Pulse Oximetry 100 100 Oxygen Delivery Oxygen Flow Rate Fraction of Inspired Oxygen 01/24/25 10:31 01/24/25 11:10 01/24/25 11:16 Temperature 97.5 F L Pulse Rate 75 72 78 Respiratory Rate 15 23 H 21 H Blood Pressure 162/125 H 141/88 H Pulse Oximetry 100 100 100 Oxygen Delivery BiPAP Oxygen Flow Rate Fraction of Inspired Oxygen 01/24/25 12:00 01/24/25 12:00 01/24/25 13:20 Temperature Pulse Rate 70 79 Respiratory Rate 20 Blood Pressure Pulse Oximetry 100 100 Oxygen Delivery BiPAP Room Air Oxygen Flow Rate Fraction of Inspired Oxygen 50 01/24/25 13:27 01/24/25 14:00 Temperature Pulse Rate 76 Respiratory Rate Blood Pressure Pulse Oximetry 98 Oxygen Delivery Room Air Oxygen Flow Rate Fraction of Inspired Oxygen Exam Narrative: GENERAL: The patient is well developed, with morbid obesity, not in acute distress HEENT: Nonicteric sclerae, PERRLA, EOMI. Oropharynx clear. Moist mucous membranes. Conjunctivae appear well perfused. CHEST: Chest wall is nontender. HEART: Regular rate and rhythm without murmur, rubs, or gallops LUNGS: Clear to auscultation bilaterally. no respiratory distress ABDOMEN: Soft, positive bowel sounds, non-tender, no organomegaly. SKIN: No rash, no excessive bruising, petechiae, or purpura. NEUROLOGIC: Cranial nerves II-XII intact, alert and oriented x 3, no gross motor deficits EXTREMITIES: no edema, cyanosis or clubbing H&P: Results Labs Labs: Short CBC 01/24/25 Range/Units 06:14 WBC 9.6 (4.5-10.0) K/mm3 Hgb 14.2 (14.0-18.0) g/dL Hct 45.4 (42.0-52.0) % Plt Count 189 (150-375) k/mm3 BMP 01/24/25 06:14 Sodium 138 Potassium 4.3 Chloride 105 Carbon Dioxide 27 BUN 18 Creatinine 0.98 Glucose 113 H Calcium 8.5 Cardiac Enzymes 01/24/25 01/24/25 01/24/25 Range/Units 06:14 09:48 12:03 Troponin I 0.033 0.062 H* D 0.058 H* (0.000-0.034) ng/mL Liver Function 01/24/25 Range/Units 06:14 Total Bilirubin 1.1 (0.2-1.3) mg/dL AST 21 (17-59) U/L ALT 15 (6-50) U/L Alkaline Phosphatase 67 (38-126) U/L Albumin 3.8 (3.5-5.1) g/dL Assessment and Plan Assessment and plan (1) Acute exacerbation of CHF (congestive heart failure): Code(s): I50.9 - Heart failure, unspecified Status: Acute (2) Acute hypoxic respiratory failure: Code(s): J96.01 - Acute respiratory failure with hypoxia Status: Acute Plan This is a 59-year-old male who presents to the ED with complaints of shortness of breath. This has been progressively getting worse over past few weeks however got really worse yesterday and he called EMS because of respiratory distress. Upon arrival of the EMS patient was anxious panicking tachypneic and hypoxic in low 80s on room air. Patient does not wear any oxygen at home. He was placed in on non-rebreather 15 L by EMS with improvement in his oxygenation to above 90%. He also received a DuoNeb treatment EN route to the ED. In the ED he was in mild respiratory distress with diminished breath sounds in lung chavez he was placed on a BiPAP for his respiratory distress. He was hypertensive on arrival to the ED and mildly tachycardic EKG showed sinus rhythm with no acute ST-T changes. Laboratory studies shows WBC of 9.6 hemoglobin of 14.2 platelet count 189. Chem panel showed 138 of sodium potassium throat 4.3 bicarbonate 27 BUN 18 creatinine 0.9 blood glucose of 113. PT INR of 1.1 APTT 33.3. LFTs were normal troponin was negative at 0.033 BNP was elevated at 2400. Influenza RSV COVID swab was negative. VBG was obtained in the ER which showed 7.27/65/less than 27/29. Chest x-ray showed likely congestive heart failure with cardiomegaly and [id number] basilar predominant pulmonary edema. Superimposed pneumonia not excludable. Indeterminate 3.5 cm masslike opacity projecting over the medial left lower lung zone. CTA chest was performed subsequently which showed no PE. Congestive heart failure with cardiomegaly and uznn-vi-[id number] pulmonary edema. Enlargement of the central and right pulmonary arteries consistent with pulmonary artery hypertension. He received IV Lasix 40 mg with diuresis and improvement. He is admitted for further treatment Acute congestive heart failure unknown diastolic or systolic. No echo in on file. He follows with executive sales manager in [facility]. Will continue diuresis with 40 mg IV b.i.d.. Will obtain echocardiogram. Acute respiratory failure with hypoxia needing BiPAP support will taper off BiPAP and monitor Hypertension resume home medication and monitor DVT prophylaxis Lovenox Code status full code Hospitalist MIPS Advance Care Plan I have confirmed that the patient's Advanced Care Plan is present, code status is documented, or surrogate decision maker is listed in patient medical record.: Yes Medication Reconciliation I have utilized all available resources to obtain, update and review the patients current medications (includes all prescriptions, OTC, herbals, cannabis, and nutritional supplements).: Yes
[2025-01-24] MEDS: PERFLUTREN LIPID MICROSPHERES 1.5 ML VIAL DILUTED TO 10 ML TOTAL VOLUME IV PUSH (16:15)
--- NOTE | 2025-01-24 16:28 | IVDEFINITY ---
Prior to administration of IV Definity the patient was educated on the risks and benefits of the imaging enhancing agent including potential adverse side effects. The patient verbalized understanding. Allergies were verified. No exclusion criteria were identified and at least one of the following inclusion criteria were met: 1) physician request, 2) patient technically difficult to image (per the [place] [employer] guidelines of two or more segments not discernable within the apical view), or 3) questionable left ventricular function. ?
[2025-01-24] MEDS: SACUBITRIL/VALSARTAN 97-103 MG TABLET 1 TAB PO (20:52)
[2025-01-25] VITALS (21 sets, daily range): BP systolic 129–156; BP diastolic 85–103; PULSE 64–89; RESP 16–20; TEMP 36.5–36.9; O2SAT 92–100
[2025-01-25] MEDS: ACETAMINOPHEN 325 MG TABLET 650 MG PO ×2 (04:00→10:22)
[2025-01-25 04:17] LABS: Hematocrit 46.4 % (42.0-52.0); Hemoglobin 14.4 g/dL (14.0-18.0); Immature Granulocyte Percent A 0.3 % (0-0.5); Lymphocytes Absolute Auto 1.11 K/mm3 (0.9-3.2); Mean Corpuscular HGB Conc 31.0 g/dl (32-36); Mean Corpuscular Hemoglobin 28.7 pg (26-34); Mean Corpuscular Volume 92.4 fl (80-100); Nucleated Red Blood Cells Absolute Auto 0.000 K/mm3 (0.0-0.012); Nucleated Red Blood Cells Perc 0.0 % (0.0-0.2); Platelet Count Result 178 k/mm3 (150-375); Red Blood Count 5.02 M/mm3 (4.6-6.20); White Blood Count 7.0 K/mm3 (4.5-10.0)
[2025-01-25 04:46] LABS: Alanine Aminotransferase 12 U/L (6-50); Albumin Level 3.5 g/dL (3.5-5.1); Alkaline Phosphatase 62 U/L (38-126); Anion Gap 5 mmol/L (4-12); Aspartate Amino Transferase 20 U/L (17-59); Bilirubin,Total 1.7 mg/dL (0.2-1.3); Blood Urea Nitrogen 16 mg/dL (9-20); Calcium 8.2 mg/dL (8.4-10.2); Carbon Dioxide 30 mmol/L (22-30); Chloride 100 mmol/L (98-107); Estimated CRCL calculation 128 ml/min; Estimated Glomerular Filt Rate > 60; Glucose 106 mg/dL (65-110); Magnesium 2.0 mg/dL (1.6-2.3); Potassium 3.9 mmol/L (3.4-5.0); Sodium 135 mmol/L (137-145); Total Protein 6.7 g/dL (6.3-8.2)
[2025-01-25 05:02] LABS: Potassium 4.1 mmol/L (3.4-5.0)
[2025-01-25] MEDS: SPIRONOLACTONE 25 MG TABLET PO (08:34)
[2025-01-25] MEDS: SACUBITRIL/VALSARTAN 97-103 MG TABLET 1 TAB PO ×2 (08:34→20:30)
[2025-01-25] MEDS: ENOXAPARIN 40 MG/0.4 ML SYRINGE SUB-Q (08:35)
[2025-01-25] MEDS: FUROSEMIDE INJ 40 MG/4 ML VIAL IV PUSH ×2 (08:36→16:06)
--- NOTE | 2025-01-25 08:47 | PM.CNCAR ---
Assessment and Plan Assessment and plan (1) Cardiomyopathy: Code(s): I42.9 - Cardiomyopathy, unspecified Status: Acute Assessment and Plan: Chronic systolic heart failure. Etiology unknown. Needs an ischemic evaluation at some point He is already on medical therapy with Entresto, spironolactone, Coreg Will discontinue hydrochlorothiazide to allow for optimization of GDMT He will need a LifeVest before discharge (2) Acute exacerbation of CHF (congestive heart failure): Code(s): I50.9 - Heart failure, unspecified Status: Acute Assessment and Plan: Acute on chronic exacerbation of systolic heart failure. He also has multivalvular disease with moderate aortic valve regurgitation, moderate mitral valve regurgitation, mild tricuspid valve regurgitation. Improving with IV diuresis. Continue furosemide 40 mg IV b.i.d. Daily weights Strict intake and output CHF counseling-will consult dietitian for education (3) Acute hypoxic respiratory failure: Code(s): J96.01 - Acute respiratory failure with hypoxia Status: Acute Assessment and Plan: Secondary to above. Improved-now on room air (4) Hypertension: Code(s): I10 - Essential (primary) hypertension Status: Acute Assessment and Plan: Generally above goal but improving with diuresis. History of Present Illness History of Present Illness Consult date/time: 01/25/25 08:47 Requesting physician: Loi Vogel MD Consult reason: congestive heart failure Reason For Visit: chf exac,hypoxic resp failure Narrative: Louis Bañuelos is a 59 year old male with hypertension and chronic systolic heart failure. He was diagnosed with a cardiomyopathy in 2018 at which time his EF was 35%. At that time, he did not undergo ischemic evaluation with coronary angiogram because his weight exceeded the weight limit of the blender laborer table at the facility he was at. Apparently, other type of ischemic evaluation was pursued. He did not follow up with doctors for 2 years and was last seen by his wave soldering machine operator in 2019. Patient reports that since that time, he has not seen a wave soldering machine operator. About 1 month ago he began to develop shortness of breath with exertion. This continued to worsen to the point that he felt he was not able to catch his breath even with rest after activity. Therefore, called EMS and was brought to hospital. He was to be in acute hypoxic respiratory failure secondary to acute on chronic CHF exacerbation. He also reports some bilateral lower extremity swelling which has improved with administration of IV furosemide. His breathing is better but still has shortness of breath with activity. He has orthopnea. At the time of my visit, he is comfortable does have any active complaints. He does have a lot of questions about his diagnosis and overall prognosis. Review of Systems Review of Systems: All systems reviewed & are unremarkable except as noted in HPI and below PMFSH Family History Family History Father Cerebrovascular accident Social History Social History Smoking status: Never smoker Alcohol intake: never Substance use: never Lack of Transportation: No Lack of Food: Never True Current Housing: I Have Housing Concerned About Future Housing: YES Difficulty Paying Gas/Electric Bills: No Difficulty Paying for Meds: YES Currently Unemployed: No Education: Master's Degree or Higher Difficulty w/ Childcare or Family Care: No Spiritual care concerns: No Meds Home Medications and Allergies Home Medications ?Medication ?Instructions ?Recorded ?Confirmed ?Type carvedilol 25 mg tablet 25 mg PO Q12H 01/24/25 01/24/25 History hydrochlorothiazide 25 mg tablet 25 mg PO DAILY 01/24/25 01/24/25 History sacubitril 97 mg-valsartan 103 mg 1 tablet PO BID 01/24/25 01/24/25 History tablet (Entresto) spironolactone 25 mg tablet 25 mg PO DAILY 01/24/25 01/24/25 History Allergies Allergy/AdvReac Type Severity Reaction Status Date / Time No Known Allergies Allergy Verified 01/24/25 06:05 Vital Signs Vital Signs - 24 hr 01/24/25 09:00 01/24/25 09:15 01/24/25 09:30 Temperature Pulse Rate 72 78 Respiratory Rate 15 18 Blood Pressure Pulse Oximetry 100 100 100 Oxygen Delivery Oxygen Flow Rate Fraction of Inspired Oxygen 01/24/25 09:43 01/24/25 09:45 01/24/25 10:00 Temperature Pulse Rate Respiratory Rate Blood Pressure 158/107 H Pulse Oximetry 100 100 100 Oxygen Delivery Oxygen Flow Rate Fraction of Inspired Oxygen 01/24/25 10:02 01/24/25 10:15 01/24/25 10:16 Temperature Pulse Rate 79 71 Respiratory Rate 17 13 Blood Pressure 147/101 H 167/111 H Pulse Oximetry 100 100 100 Oxygen Delivery Oxygen Flow Rate Fraction of Inspired Oxygen 01/24/25 10:30 01/24/25 10:31 01/24/25 11:10 Temperature Pulse Rate 73 75 72 Respiratory Rate 15 15 23 H Blood Pressure 162/125 H Pulse Oximetry 100 100 Oxygen Delivery BiPAP Oxygen Flow Rate Fraction of Inspired Oxygen 01/24/25 11:16 01/24/25 12:00 01/24/25 12:00 Temperature 36.4 C L Pulse Rate 78 70 Respiratory Rate 21 H Blood Pressure 141/88 H Pulse Oximetry 100 100 Oxygen Delivery BiPAP Oxygen Flow Rate Fraction of Inspired Oxygen 50 01/24/25 13:20 01/24/25 13:27 01/24/25 14:00 Temperature Pulse Rate 79 76 Respiratory Rate 20 Blood Pressure Pulse Oximetry 100 98 Oxygen Delivery Room Air Room Air Oxygen Flow Rate Fraction of Inspired Oxygen 01/24/25 16:00 01/24/25 16:00 01/24/25 16:00 Temperature 36.4 C L Pulse Rate 72 80 Respiratory Rate 18 Blood Pressure 140/82 Pulse Oximetry 95 97 Oxygen Delivery Room Air Oxygen Flow Rate Fraction of Inspired Oxygen 01/24/25 16:50 01/24/25 18:00 01/24/25 19:23 Temperature 36.4 C Pulse Rate 83 92 Respiratory Rate 17 Blood Pressure 119/67 Pulse Oximetry 98 93 Oxygen Delivery Room Air Oxygen Flow Rate Fraction of Inspired Oxygen 01/24/25 20:00 01/24/25 20:00 01/24/25 20:15 Temperature Pulse Rate 82 81 Respiratory Rate Blood Pressure Pulse Oximetry 94 96 Oxygen Delivery Room Air Room Air Oxygen Flow Rate Fraction of Inspired Oxygen 01/24/25 20:15 01/24/25 20:52 01/24/25 22:00 Temperature Pulse Rate 81 75 77 Respiratory Rate Blood Pressure Pulse Oximetry 96 Oxygen Delivery Room Air Oxygen Flow Rate Fraction of Inspired Oxygen 21 01/24/25 23:20 01/24/25 23:20 01/24/25 23:36 Temperature Pulse Rate 71 71 73 Respiratory Rate 17 17 Blood Pressure 145/99 H Pulse Oximetry 99 99 98 Oxygen Delivery BiPAP BiPAP Oxygen Flow Rate Fraction of Inspired Oxygen 36 01/25/25 00:00 01/25/25 00:00 01/25/25 01:05 Temperature Pulse Rate 66 71 Respiratory Rate Blood Pressure Pulse Oximetry 99 99 Oxygen Delivery BiPAP Nasal Cannula Oxygen Flow Rate Fraction of Inspired Oxygen 50 01/25/25 01:05 01/25/25 02:00 01/25/25 04:00 Temperature Pulse Rate 71 64 Respiratory Rate Blood Pressure Pulse Oximetry 99 97 Oxygen Delivery Nasal Cannula Nasal Cannula Oxygen Flow Rate 3 3 Fraction of Inspired Oxygen 01/25/25 04:00 01/25/25 06:00 01/25/25 06:25 Temperature 36.5 C Pulse Rate 67 74 68 Respiratory Rate 16 Blood Pressure 143/91 H Pulse Oximetry 100 Oxygen Delivery Oxygen Flow Rate Fraction of Inspired Oxygen 01/25/25 07:19 01/25/25 07:34 01/25/25 08:34 Temperature 36.8 C Pulse Rate 75 74 82 Respiratory Rate 20 16 Blood Pressure 156/103 H Pulse Oximetry 96 93 Oxygen Delivery Room Air Oxygen Flow Rate Fraction of Inspired Oxygen Exam Const: General: comfortable, no acute distress, alert and awake Orientation/consciousness: patient oriented x3 Other: He is morbidly obese HENMT: Head: normal to inspection Eyes: General: appearance normal, both eyes and all related structures Pupils: Equal, round and reactive pupils present Neck: Neck: normal visual inspection and supple Carotids: normal carotid upstroke Resp: Effort & Inspection: normal respiratory effort Auscultation: clear to auscultation bilaterally and crackles Cardio: Rate: regular rate Rhythm: regular rhythm Heart sounds: S1 normal heart sound present, S2 normal heart sound present and no murmurs GI: Auscultation: normal bowel sounds Urinary Catheter: Urinary Catheter: patent and draining Skin: General skin exam: normal color Neuro: General: patient oriented x3 Cranial nerves: Yes Equal, round and reactive pupils present Extrem: Other: trace pedal edema Psych: Appearance: grossly normal Mental Status: mental status grossly normal Results Labs and Meds 01/25/25 03:45 01/25/25 03:45 Lab results: Cardiac Enzymes 01/24/25 01/24/25 01/25/25 Range/Units 09:48 12:03 03:45 AST 20 (17-59) U/L Troponin I 0.062 H* D 0.058 H* (0.000-0.034) ng/mL CBC 01/25/25 Range/Units 03:45 WBC 7.0 (4.5-10.0) K/mm3 RBC 5.02 (4.6-6.20) M/mm3 Hgb 14.4 (14.0-18.0) g/dL Hct 46.4 (42.0-52.0) % Plt Count 178 (150-375) k/mm3 Lymph # (Auto) 1.11 (0.9-3.2) K/mm3 [place] # (Auto) 0.5 (0.1-0.6) K/mm3 Eos # (Auto) 0.3 (0-0.3) K/mm3 Baso # (Auto) 0.0 (0.0-0.1) K/mm3 Comprehensive Metabolic Panel 01/25/25 01/25/25 Range/Units 03:45 03:45 Sodium 135 L (137-145) mmol/L Potassium 4.1 3.9 (3.4-5.0) mmol/L Chloride 100 (98-107) mmol/L Carbon Dioxide 30 (22-30) mmol/L BUN 16 (9-20) mg/dL Creatinine 0.88 (0.7-1.3) mg/dL Glucose 106 (65-110) mg/dL Calcium 8.2 L (8.4-10.2) mg/dL AST 20 (17-59) U/L ALT 12 (6-50) U/L Alkaline Phosphatase 62 (38-126) U/L Total Protein 6.7 (6.3-8.2) g/dL Albumin 3.5 (3.5-5.1) g/dL Intake and Output 01/24/25 01/25/25 01/25/25 23:59 07:59 15:59 Intake Total 640 240 Output Total 2150 850 Balance -1510 -850 240 Intake: Oral 640 240 Output: Urine 2150 850 Patient Weight 01/25/25 23:59 Weight 180.9 kg
--- NOTE | 2025-01-25 14:05 | P.PNIM_ITS ---
Progress Note: A&P Assessment and Plan (1) Acute exacerbation of CHF (congestive heart failure): Code(s): I50.9 - Heart failure, unspecified Status: Acute (2) Acute hypoxic respiratory failure: Code(s): J96.01 - Acute respiratory failure with hypoxia Status: Acute Plan This is a 59-year-old male who presents to the ED with complaints of shortness of breath. This has been progressively getting worse over past few weeks however got really worse yesterday and he called EMS because of respiratory distress. Upon arrival of the EMS patient was anxious panicking tachypneic and hypoxic in low 80s on room air. Patient does not wear any oxygen at home. He was placed in on non-rebreather 15 L by EMS with improvement in his oxygenation to above 90%. He also received a DuoNeb treatment EN route to the ED. In the ED he was in mild respiratory distress with diminished breath sounds in lung chavez he was placed on a BiPAP for his respiratory distress. He was hypertensive on arrival to the ED and mildly tachycardic EKG showed sinus rhythm with no acute ST-T changes. Laboratory studies shows WBC of 9.6 hemoglobin of 14.2 platelet count 189. Chem panel showed 138 of sodium potassium throat 4.3 bicarbonate 27 BUN 18 creatinine 0.9 blood glucose of 113. PT INR of 1.1 APTT 33.3. LFTs were normal troponin was negative at 0.033 BNP was elevated at 2400. Influenza RSV COVID swab was negative. VBG was obtained in the ER which showed 7.27/65/less than 27/29. Chest x-ray showed likely congestive heart failure with cardiomegaly and [id number] basilar predominant pulmonary edema. Superimposed pneumonia not excludable. Indeterminate 3.5 cm masslike opacity projecting over the medial left lower lung zone. CTA chest was performed subsequently which showed no PE. Congestive heart failure with cardiomegaly and [id number] pulmonary edema. Enlargement of the central and right pulmonary arteries consistent with pulmonary artery hypertension. He received IV Lasix 40 mg with diuresis and improvement. He is admitted for further treatment Acute congestive heart failure combined diastolic and systolic. No echo in on file. Echo with EF 30-35%. Cardiology consulted. He follows with security services specialist in [facility]. Will continue diuresis with 40 mg IV b.i.d.. Check ApneaLink to rule out sleep apnea discussed needs home sleep study as an outpatient basis. Patient already on Entresto and carvedilol and spironolactone. He also might need ischemic evaluation. Rule out underlying sleep apnea. Morbid obesity discussed diet and physical activity Possible sleep apnea: Will do apnea link Acute respiratory failure with hypoxia needing BiPAP support now tapered off. Hypertension resume home medication and monitor DVT prophylaxis Lovenox Code status full code Subjective Date/time seen: 01/25/25 14:05 Interval history: Overnight he was hypoxic whenever he sleeps per nursing staff. Breathing has improved. On room air. Leg swelling has improved. Echo findings reviewed with the patient. Review of Systems Review of Systems: All systems reviewed & are unremarkable except as noted in HPI and below Exam Narrative: GENERAL: The patient is well developed, with morbid obesity, not in acute distress HEENT: Nonicteric sclerae, PERRLA, EOMI. Oropharynx clear. Moist mucous membranes. Conjunctivae appear well perfused. CHEST: Chest wall is nontender. HEART: Regular rate and rhythm without murmur, rubs, or gallops LUNGS: Clear to auscultation bilaterally. no respiratory distress ABDOMEN: Soft, positive bowel sounds, non-tender, no organomegaly. SKIN: No rash, no excessive bruising, petechiae, or purpura. NEUROLOGIC: Cranial nerves II-XII intact, alert and oriented x 3, no gross motor deficits EXTREMITIES: 1+ edema, no cyanosis or clubbing Objective Data Vital Signs Vital Signs: Vital Signs - 24 hr 01/24/25 16:00 01/24/25 16:00 01/24/25 16:00 Temperature 97.5 F L Pulse Rate 72 80 Respiratory Rate 18 Blood Pressure 140/82 Pulse Oximetry 95 97 Oxygen Delivery Room Air Oxygen Flow Rate Fraction of Inspired Oxygen 01/24/25 16:50 01/24/25 18:00 01/24/25 19:23 Temperature 97.6 F Pulse Rate 83 92 Respiratory Rate 17 Blood Pressure 119/67 Pulse Oximetry 98 93 Oxygen Delivery Room Air Oxygen Flow Rate Fraction of Inspired Oxygen 01/24/25 20:00 01/24/25 20:00 01/24/25 20:15 Temperature Pulse Rate 82 81 Respiratory Rate Blood Pressure Pulse Oximetry 94 96 Oxygen Delivery Room Air Room Air Oxygen Flow Rate Fraction of Inspired Oxygen 01/24/25 20:15 01/24/25 20:52 01/24/25 22:00 Temperature Pulse Rate 81 75 77 Respiratory Rate Blood Pressure Pulse Oximetry 96 Oxygen Delivery Room Air Oxygen Flow Rate Fraction of Inspired Oxygen 21 01/24/25 23:20 01/24/25 23:20 01/24/25 23:36 Temperature Pulse Rate 71 71 73 Respiratory Rate 17 17 Blood Pressure 145/99 H Pulse Oximetry 99 99 98 Oxygen Delivery BiPAP BiPAP Oxygen Flow Rate Fraction of Inspired Oxygen 36 01/25/25 00:00 01/25/25 00:00 01/25/25 01:05 Temperature Pulse Rate 66 71 Respiratory Rate Blood Pressure Pulse Oximetry 99 99 Oxygen Delivery BiPAP Nasal Cannula Oxygen Flow Rate Fraction of Inspired Oxygen 50 01/25/25 01:05 01/25/25 02:00 01/25/25 04:00 Temperature Pulse Rate 71 64 Respiratory Rate Blood Pressure Pulse Oximetry 99 97 Oxygen Delivery Nasal Cannula Nasal Cannula Oxygen Flow Rate 3 3 Fraction of Inspired Oxygen 01/25/25 04:00 01/25/25 06:00 01/25/25 06:25 Temperature 97.7 F Pulse Rate 67 74 68 Respiratory Rate 16 Blood Pressure 143/91 H Pulse Oximetry 100 Oxygen Delivery Oxygen Flow Rate Fraction of Inspired Oxygen 01/25/25 07:19 01/25/25 07:34 01/25/25 08:00 Temperature 98.2 F Pulse Rate 75 74 69 Respiratory Rate 20 16 Blood Pressure 156/103 H Pulse Oximetry 96 93 Oxygen Delivery Room Air Oxygen Flow Rate Fraction of Inspired Oxygen 01/25/25 08:34 01/25/25 10:00 01/25/25 11:35 Temperature 98 F Pulse Rate 82 77 73 Respiratory Rate 18 Blood Pressure 149/88 H Pulse Oximetry 95 Oxygen Delivery Oxygen Flow Rate Fraction of Inspired Oxygen 01/25/25 12:00 Temperature Pulse Rate 78 Respiratory Rate Blood Pressure Pulse Oximetry Oxygen Delivery Oxygen Flow Rate Fraction of Inspired Oxygen Intake/Output Intake/Output: Intake & Output 01/22/25 01/23/25 01/24/25 01/25/25 23:59 23:59 23:59 23:59 Intake Total 880 480 Output Total 3550 1250 Balance -0470 -770 Meds/Results Medications: Active Medications Generic Name Dose Route Start Last Admin Trade Name Freq PRN Reason Stop Dose Admin Acetaminophen 650 mg 01/24/25 14:06 01/25/25 10:22 Acetaminophen 325 Mg Tablet PO 650 mg Q6H PRN Administration Mild Pain (1-3) or Fever Carvedilol 25 mg 01/24/25 21:00 01/25/25 08:34 Carvedilol 25 Mg Tablet PO 25 mg Q12HR JACKIE Administration Enoxaparin Sodium 40 mg 01/25/25 09:00 01/25/25 08:35 Enoxaparin 40 Mg/0.4 Ml Syringe SUB-Q 40 mg DAILY JACKIE Administration Furosemide 40 mg 01/24/25 17:00 01/25/25 08:36 Furosemide Inj 40 Mg/4 Ml Vial IV PUSH 40 mg BID JACKIE Administration Hydrochlorothiazide 25 mg 01/25/25 09:00 01/25/25 08:34 Hydrochlorothiazide 25 Mg Tablet PO 25 mg DAILY JACKIE Administration Sacubitril/Valsartan 1 tab 01/24/25 21:00 01/25/25 08:34 Sacubitril/Valsartan 97-103 Mg Tablet PO 1 tab Q12HR JACKIE Administration Spironolactone 25 mg 01/25/25 09:00 01/25/25 08:34 Spironolactone 25 Mg Tablet PO 25 mg DAILY JACKIE Administration Radiology Results: ITS Impressions Chest X-Ray 01/24/25 07:33 IMPRESSION: 1. Likely congestive heart failure with cardiomegaly and mild to moderate basilar predominant pulmonary edema. Superimposed pneumonia not excludable. 2. Indeterminate 3.5 cm masslike opacity projecting over the medial left lower lung zone. Would recommend chest CT for further evaluation. Chest CTA 01/24/25 08:19 IMPRESSION: 1. No pulmonary embolism. Sensitivity decreased in some of the smaller subsegmental pulmonary arteries due to combination of suboptimal contrast opacification and small mild respiratory motion. 2. Congestive heart failure with cardiomegaly and mild to moderate pulmonary edema. 3. Enlargement of the central and right pulmonary arteries consistent with pulmonary arterial hypertension. Labs Labs: Laboratory Results - last 24 hr 01/25/25 01/25/25 03:45 03:45 WBC 7.0 RBC 5.02 Hgb 14.4 Hct 46.4 MCV 92.4 MCH 28.7 MCHC 31.0 L RDW 14.6 H Plt Count 178 MPV 11.1 H Immature Gran % (Auto) 0.3 Neut % (Auto) 72.2 Lymph % (Auto) 15.8 L [place] % (Auto) 7.7 Eos % (Auto) 3.7 Baso % (Auto) 0.3 Lymph # (Auto) 1.11 [place] # (Auto) 0.5 Eos # (Auto) 0.3 Baso # (Auto) 0.0 Abs Immat Gran (auto) 0.02 Absolute Neuts (auto) 5.1 Absolute Nucleated RBC 0.000 Nucleated RBC % 0.0 Sodium 135 L Potassium 4.1 3.9 Chloride 100 Carbon Dioxide 30 Anion Gap 5 BUN 16 Creatinine 0.88 Estim Creat Clear Calc 128 Estimated GFR > 60 Glucose 106 Calcium 8.2 L Magnesium 2.0 Total Bilirubin 1.7 H AST 20 ALT 12 Alkaline Phosphatase 62 Total Protein 6.7 Albumin 3.5
[2025-01-26] VITALS (18 sets, daily range): BP systolic 110–145; BP diastolic 67–90; PULSE 62–90; RESP 14–20; TEMP 36.6–37; O2SAT 90–99
[2025-01-26 06:49] LABS: Hematocrit 47.1 % (42.0-52.0); Hemoglobin 15.2 g/dL (14.0-18.0); Immature Granulocyte Percent A 0.3 % (0-0.5); Lymphocytes Absolute Auto 1.52 K/mm3 (0.9-3.2); Mean Corpuscular HGB Conc 32.3 g/dl (32-36); Mean Corpuscular Hemoglobin 29.3 pg (26-34); Mean Corpuscular Volume 90.9 fl (80-100); Nucleated Red Blood Cells Absolute Auto 0.000 K/mm3 (0.0-0.012); Nucleated Red Blood Cells Perc 0.0 % (0.0-0.2); Platelet Count Result 197 k/mm3 (150-375); Red Blood Count 5.18 M/mm3 (4.6-6.20); White Blood Count 7.7 K/mm3 (4.5-10.0)
[2025-01-26 07:14] LABS: Alanine Aminotransferase 18 U/L (6-50); Albumin Level 3.5 g/dL (3.5-5.1); Alkaline Phosphatase 69 U/L (38-126); Anion Gap 5 mmol/L (4-12); Aspartate Amino Transferase 20 U/L (17-59); Bilirubin,Total 1.7 mg/dL (0.2-1.3); Blood Urea Nitrogen 18 mg/dL (9-20); Calcium 8.4 mg/dL (8.4-10.2); Carbon Dioxide 31 mmol/L (22-30); Chloride 96 mmol/L (98-107); Estimated CRCL calculation 107 ml/min; Estimated Glomerular Filt Rate > 60; Glucose 153 mg/dL (65-110); Magnesium 1.9 mg/dL (1.6-2.3); Potassium 3.3 mmol/L (3.4-5.0); Sodium 132 mmol/L (137-145); Total Protein 7.1 g/dL (6.3-8.2)
[2025-01-26] MEDS: FUROSEMIDE INJ 40 MG/4 ML VIAL IV PUSH ×2 (08:19→16:23)
[2025-01-26] MEDS: ENOXAPARIN 40 MG/0.4 ML SYRINGE SUB-Q (08:19)
[2025-01-26] MEDS: SPIRONOLACTONE 25 MG TABLET PO (08:20)
[2025-01-26] MEDS: SACUBITRIL/VALSARTAN 97-103 MG TABLET 1 TAB PO ×2 (08:20→20:26)
[2025-01-26] MEDS: POTASSIUM CHLORIDE 20 MEQ ER TABLET 40 MEQ PO (09:47)
--- NOTE | 2025-01-26 09:50 | P.PNCA_ITS ---
Progress Note: A&P Assessment and Plan (1) Cardiomyopathy: Code(s): I42.9 - Cardiomyopathy, unspecified Status: Acute Assessment and Plan: Chronic systolic heart failure. Etiology unknown. * Needs an ischemic evaluation at some point * He is already on medical therapy with Entresto, spironolactone, Coreg * Will add jardiance 10mg daily * K+ 3.3 this morning. Repleted. * He will need a LifeVest before discharge - this has been ordered * Will repeat echo as outpatient in 2 months to reassess LV function (2) Acute exacerbation of CHF (congestive heart failure): Code(s): I50.9 - Heart failure, unspecified Status: Acute Assessment and Plan: Acute on chronic exacerbation of systolic heart failure. He also has multivalvular disease with moderate aortic valve regurgitation, moderate mitral valve regurgitation, mild tricuspid valve regurgitation. Improving with IV diuresis. * Continue furosemide 40 mg IV b.i.d. for today. Likely shift to p.o. tomorrow * Daily weights * Strict intake and output * CHF counseling-will consult dietitian for education (3) Acute hypoxic respiratory failure: Code(s): J96.01 - Acute respiratory failure with hypoxia Status: Acute Assessment and Plan: Secondary to above. Improved-now on room air (4) Hypertension: Code(s): I10 - Essential (primary) hypertension Status: Acute Assessment and Plan: At goal. Subjective Date/time seen: 01/26/25 09:50 Interval history: Cardiology follow up visit Date of service 01/26/2025: Feeling better today. Able to lie flat without having any shortness of breath. No chest pain, palpitations. Review of Systems Review of Systems: All systems reviewed & are unremarkable except as noted in HPI and below Exam Const: General: comfortable, no acute distress, alert and awake Orientation/consciousness: patient oriented x3 Other: He is morbidly obese HENMT: Head: normal to inspection Eyes: General: appearance normal, both eyes and all related structures Pupils: Equal, round and reactive pupils present Neck: Neck: normal visual inspection and supple Carotids: normal carotid upstroke Resp: Effort & Inspection: normal respiratory effort Auscultation: clear to auscultation bilaterally and crackles Cardio: Rate: regular rate Rhythm: regular rhythm Heart sounds: S1 normal heart sound present, S2 normal heart sound present and no murmurs GI: Auscultation: normal bowel sounds Urinary Catheter: Urinary Catheter: patent and draining Skin: General skin exam: normal color Neuro: General: patient oriented x3 Cranial nerves: Yes Equal, round and reactive pupils present Extrem: Other: trace pedal edema Psych: Appearance: grossly normal Mental Status: mental status grossly normal Objective Data Vital Signs Vital Signs: Vital Signs - 24 hr 01/25/25 10:00 01/25/25 11:35 01/25/25 12:00 Temperature 36.6 C Pulse Rate 77 73 78 Respiratory Rate 18 Blood Pressure 149/88 H Pulse Oximetry 95 Oxygen Delivery Oxygen Flow Rate 01/25/25 14:00 01/25/25 15:15 01/25/25 15:36 Temperature 36.8 C Pulse Rate 78 80 Respiratory Rate 18 Blood Pressure 139/87 Pulse Oximetry 96 Oxygen Delivery Room Air Oxygen Flow Rate 01/25/25 15:36 01/25/25 16:00 01/25/25 18:00 Temperature Pulse Rate 74 73 Respiratory Rate Blood Pressure Pulse Oximetry 96 Oxygen Delivery Room Air Oxygen Flow Rate 01/25/25 20:00 01/25/25 20:00 01/25/25 20:00 Temperature 36.9 C Pulse Rate 89 81 Respiratory Rate 20 Blood Pressure 129/85 Pulse Oximetry 95 92 Oxygen Delivery Room Air Oxygen Flow Rate 01/25/25 20:30 01/25/25 22:00 01/25/25 22:30 Temperature Pulse Rate 82 76 Respiratory Rate Blood Pressure Pulse Oximetry 95 Oxygen Delivery Nasal Cannula Oxygen Flow Rate 2 01/26/25 00:00 01/26/25 00:00 01/26/25 00:00 Temperature 36.8 C Pulse Rate 69 62 Respiratory Rate 20 Blood Pressure 125/86 Pulse Oximetry 97 96 Oxygen Delivery Nasal Cannula Oxygen Flow Rate 2 01/26/25 02:00 01/26/25 04:00 01/26/25 04:00 Temperature Pulse Rate 69 66 Respiratory Rate Blood Pressure Pulse Oximetry 94 Oxygen Delivery Nasal Cannula Oxygen Flow Rate 3.5 01/26/25 04:00 01/26/25 06:00 01/26/25 07:41 Temperature 36.7 C 36.6 C Pulse Rate 90 75 77 Respiratory Rate 20 14 Blood Pressure 145/90 H 116/67 Pulse Oximetry 90 95 Oxygen Delivery Oxygen Flow Rate 01/26/25 08:00 01/26/25 08:00 01/26/25 08:20 Temperature Pulse Rate 76 74 Respiratory Rate Blood Pressure Pulse Oximetry Oxygen Delivery Room Air Oxygen Flow Rate 01/26/25 09:21 Temperature Pulse Rate 71 Respiratory Rate Blood Pressure Pulse Oximetry Oxygen Delivery Oxygen Flow Rate Intake/Output Intake/Output: Intake & Output 01/23/25 01/24/25 01/25/25 01/26/25 23:59 23:59 23:59 23:59 Intake Total 880 1820 822 Output Total 3550 2100 1500 Balance -7847 -275 -440 Meds/Results Medications: Active Medications Generic Name Dose Route Start Last Admin Trade Name Freq PRN Reason Stop Dose Admin Acetaminophen 650 mg 01/24/25 14:06 01/25/25 10:22 Acetaminophen 325 Mg Tablet PO 650 mg Q6H PRN Administration Mild Pain (1-3) or Fever Carvedilol 25 mg 01/24/25 21:00 01/26/25 08:20 Carvedilol 25 Mg Tablet PO 25 mg Q12HR JACKIE Administration Enoxaparin Sodium 40 mg 01/25/25 09:00 01/26/25 08:19 Enoxaparin 40 Mg/0.4 Ml Syringe SUB-Q 40 mg DAILY JACKIE Administration Furosemide 40 mg 01/24/25 17:00 01/26/25 08:19 Furosemide Inj 40 Mg/4 Ml Vial IV PUSH 40 mg BID JACKIE Administration Sacubitril/Valsartan 1 tab 01/24/25 21:00 01/26/25 08:20 Sacubitril/Valsartan 97-103 Mg Tablet PO 1 tab Q12HR JACKIE Administration Spironolactone 25 mg 01/25/25 09:00 01/26/25 08:20 Spironolactone 25 Mg Tablet PO 25 mg DAILY JACKIE Administration Radiology Results: ITS Impressions Chest X-Ray 01/24/25 07:33 IMPRESSION: 1. Likely congestive heart failure with cardiomegaly and mild to moderate basilar predominant pulmonary edema. Superimposed pneumonia not excludable. 2. Indeterminate 3.5 cm masslike opacity projecting over the medial left lower lung zone. Would recommend chest CT for further evaluation. Chest CTA 01/24/25 08:19 IMPRESSION: 1. No pulmonary embolism. Sensitivity decreased in some of the smaller subsegmental pulmonary arteries due to combination of suboptimal contrast opacification and small mild respiratory motion. 2. Congestive heart failure with cardiomegaly and mild to moderate pulmonary edema. 3. Enlargement of the central and right pulmonary arteries consistent with pulmonary arterial hypertension. Labs Labs: Laboratory Results - last 24 hr 01/26/25 01/26/25 06:34 06:35 WBC 7.7 RBC 5.18 Hgb 15.2 Hct 47.1 MCV 90.9 MCH 29.3 MCHC 32.3 RDW 14.2 Plt Count 197 MPV 10.5 H Immature Gran % (Auto) 0.3 Neut % (Auto) 72.3 Lymph % (Auto) 19.7 [place] % (Auto) 4.8 Eos % (Auto) 2.6 Baso % (Auto) 0.3 Lymph # (Auto) 1.52 [place] # (Auto) 0.4 Eos # (Auto) 0.2 Baso # (Auto) 0.0 Abs Immat Gran (auto) 0.02 Absolute Neuts (auto) 5.6 Absolute Nucleated RBC 0.000 Nucleated RBC % 0.0 Sodium 132 L Potassium 3.3 L Chloride 96 L Carbon Dioxide 31 H Anion Gap 5 BUN 18 Creatinine 1.07 Estim Creat Clear Calc 107 Estimated GFR > 60 Glucose 153 H Calcium 8.4 Magnesium 1.9 Total Bilirubin 1.7 H AST 20 ALT 18 Alkaline Phosphatase 69 Total Protein 7.1 Albumin 3.5
--- NOTE | 2025-01-26 16:23 | PM.IMPN ---
Progress Note: A&P Assessment and Plan (1) Acute hypoxic respiratory failure: Code(s): J96.01 - Acute respiratory failure with hypoxia Status: Acute Assessment and Plan: Patient presents with acute resp failure treated with supplemental O2 by EMS VBG showing 7.27/65/<27/29 and was started on bipap in ED with improvement. BNP 2400. Influenza, RSV, COVID PCR was negative. CXR showed likely CHF with cardiomegaly and [id number] basilar predominant pulmonary edema. Posible mass LLL. CTA chest showing no PE or lung mass but CHF with CMP and mild-moderate pulmonary edema and possible pulm arterial HTN. Started on IV Lasix with good response. Able to be weaned to room air. Possible sleep apnea. ApneaLink showing AHI 38 and RI 40. Spent 53 minutes with SpO2 <88%. Was on 2L but increased to 4L overnight. Repeat Apnea link on 4L O2. Follow (2) Acute exacerbation of CHF (congestive heart failure): Code(s): I50.9 - Heart failure, unspecified Status: Acute Assessment and Plan: Acute congestive heart failure combined diastolic and systolic. Echo with EF 30-35%, abnormal diastolic fxn. Cardiology consulted. Continue diuresis with 40 mg IV b.i.d.. Continue GDMT with Entresto, Coreg and Aldactone. Empagliflozin added. Monitr renal function, electrolytes and UOP (3) Hypertension: Code(s): I10 - Essential (primary) hypertension Status: Acute Assessment and Plan: Patient's blood pressure was reviewed on 01/26 Blood pressure remains well controlled. Will continue to follow Plan Morbid obesity - diet and physical activity was discussed DVT prophylaxis Lovenox Code status full code Subjective Date/time seen: 01/26/25 16:23 Interval history: 59yo male who presents to the ED with complaints of shortness of breath. Assuming care. Chart reviewed. Patient does not wear CPAP or oxygen at home. He slept poorly last night. He denies nausea, vomiting or diarrhea. No orthopnea. No shortness of breath. No dyspnea on exertion. No chest pain. He feels his lower extremity edema is much improved. Exam Narrative: AF 98.0 136/88 71 20 96% ra Gen - NARD Chest - CTA bilaterally, nml RR CV - RRR S1/S2. Telemetry showing a 8 beat run of NSVT and PVCs Abd - Soft, obese, NT Ext - 1+ pedal edema Psych - Nml mood and affect Skin - Warm and dry Objective Data Vital Signs Vital Signs: Vital Signs - 24 hr 01/25/25 18:00 01/25/25 20:00 01/25/25 20:00 Temperature 98.4 F Pulse Rate 73 89 Respiratory Rate 20 Blood Pressure 129/85 Pulse Oximetry 95 92 Oxygen Delivery Room Air Oxygen Flow Rate 01/25/25 20:00 01/25/25 20:30 01/25/25 22:00 Temperature Pulse Rate 81 82 76 Respiratory Rate Blood Pressure Pulse Oximetry Oxygen Delivery Oxygen Flow Rate 01/25/25 22:30 01/26/25 00:00 01/26/25 00:00 Temperature 98.3 F Pulse Rate 69 Respiratory Rate 20 Blood Pressure 125/86 Pulse Oximetry 95 97 96 Oxygen Delivery Nasal Cannula Nasal Cannula Oxygen Flow Rate 2 2 01/26/25 00:00 01/26/25 02:00 01/26/25 04:00 Temperature Pulse Rate 62 69 66 Respiratory Rate Blood Pressure Pulse Oximetry Oxygen Delivery Oxygen Flow Rate 01/26/25 04:00 01/26/25 04:00 01/26/25 06:00 Temperature 98.1 F Pulse Rate 90 75 Respiratory Rate 20 Blood Pressure 145/90 H Pulse Oximetry 94 90 Oxygen Delivery Nasal Cannula Oxygen Flow Rate 3.5 01/26/25 07:41 01/26/25 08:00 01/26/25 08:00 Temperature 97.9 F Pulse Rate 77 76 Respiratory Rate 14 Blood Pressure 116/67 Pulse Oximetry 95 Oxygen Delivery Room Air Oxygen Flow Rate 01/26/25 08:20 01/26/25 09:21 01/26/25 10:00 Temperature Pulse Rate 74 71 66 Respiratory Rate Blood Pressure Pulse Oximetry Oxygen Delivery Oxygen Flow Rate 01/26/25 11:17 01/26/25 12:00 01/26/25 12:00 Temperature 98.6 F Pulse Rate 73 73 Respiratory Rate 14 Blood Pressure 122/72 Pulse Oximetry 99 Oxygen Delivery Room Air Oxygen Flow Rate 01/26/25 14:00 01/26/25 14:25 01/26/25 16:00 Temperature 98 F Pulse Rate 69 71 Respiratory Rate 20 Blood Pressure 136/88 Pulse Oximetry 96 96 Oxygen Delivery Room Air Oxygen Flow Rate 01/26/25 16:00 Temperature Pulse Rate Respiratory Rate Blood Pressure Pulse Oximetry Oxygen Delivery Room Air Oxygen Flow Rate Intake/Output Intake/Output: Intake & Output 01/23/25 01/24/25 01/25/25 01/26/25 23:59 23:59 23:59 23:59 Intake Total 880 1820 822 Output Total 3550 2100 0728 Balance -5958 -803 -8594 Meds/Results Medications: Active Medications Generic Name Dose Route Start Last Admin Trade Name Freq PRN Reason Stop Dose Admin Acetaminophen 650 mg 01/24/25 14:06 01/25/25 10:22 Acetaminophen 325 Mg Tablet PO 650 mg Q6H PRN Administration Mild Pain (1-3) or Fever Carvedilol 25 mg 01/24/25 21:00 01/26/25 08:20 Carvedilol 25 Mg Tablet PO 25 mg Q12HR JACKIE Administration Empagliflozin 10 mg 01/27/25 09:00 Empagliflozin 10 Mg Tablet PO DAILY JACKIE Enoxaparin Sodium 40 mg 01/25/25 09:00 01/26/25 08:19 Enoxaparin 40 Mg/0.4 Ml Syringe SUB-Q 40 mg DAILY JACKIE Administration Furosemide 40 mg 01/24/25 17:00 01/26/25 16:23 Furosemide Inj 40 Mg/4 Ml Vial IV PUSH 40 mg BID JACKIE Administration Sacubitril/Valsartan 1 tab 01/24/25 21:00 01/26/25 08:20 Sacubitril/Valsartan 97-103 Mg Tablet PO 1 tab Q12HR JACKIE Administration Spironolactone 25 mg 01/25/25 09:00 01/26/25 08:20 Spironolactone 25 Mg Tablet PO 25 mg DAILY JACKIE Administration Radiology Results: ITS Impressions Chest X-Ray 01/24/25 07:33 IMPRESSION: 1. Likely congestive heart failure with cardiomegaly and mild to moderate basilar predominant pulmonary edema. Superimposed pneumonia not excludable. 2. Indeterminate 3.5 cm masslike opacity projecting over the medial left lower lung zone. Would recommend chest CT for further evaluation. Chest CTA 01/24/25 08:19 IMPRESSION: 1. No pulmonary embolism. Sensitivity decreased in some of the smaller subsegmental pulmonary arteries due to combination of suboptimal contrast opacification and small mild respiratory motion. 2. Congestive heart failure with cardiomegaly and mild to moderate pulmonary edema. 3. Enlargement of the central and right pulmonary arteries consistent with pulmonary arterial hypertension. Labs Labs: Laboratory Results - last 24 hr 01/26/25 01/26/25 06:34 06:35 WBC 7.7 RBC 5.18 Hgb 15.2 Hct 47.1 MCV 90.9 MCH 29.3 MCHC 32.3 RDW 14.2 Plt Count 197 MPV 10.5 H Immature Gran % (Auto) 0.3 Neut % (Auto) 72.3 Lymph % (Auto) 19.7 [place] % (Auto) 4.8 Eos % (Auto) 2.6 Baso % (Auto) 0.3 Lymph # (Auto) 1.52 [place] # (Auto) 0.4 Eos # (Auto) 0.2 Baso # (Auto) 0.0 Abs Immat Gran (auto) 0.02 Absolute Neuts (auto) 5.6 Absolute Nucleated RBC 0.000 Nucleated RBC % 0.0 Sodium 132 L Potassium 3.3 L Chloride 96 L Carbon Dioxide 31 H Anion Gap 5 BUN 18 Creatinine 1.07 Estim Creat Clear Calc 107 Estimated GFR > 60 Glucose 153 H Calcium 8.4 Magnesium 1.9 Total Bilirubin 1.7 H AST 20 ALT 18 Alkaline Phosphatase 69 Total Protein 7.1 Albumin 3.5
--- NOTE | 2025-01-26 16:36 | PC.NURSE ---
On 01/26/25, the student, Altagracia Jorgensen, provided care and completed [facility] documentation on this patient. I have reviewed the student's documentation and agree with the findings.
[2025-01-26] MEDS: MELATONIN 5 MG TABLET PO (22:24)
[2025-01-27] VITALS (12 sets, daily range): BP systolic 115–140; BP diastolic 65–85; PULSE 57–78; RESP 18–20; TEMP 36.1–37; O2SAT 92–100
[2025-01-27 04:31] LABS: Albumin Level 3.5 g/dL (3.5-5.1); Anion Gap 6 mmol/L (4-12); Blood Urea Nitrogen 22 mg/dL (9-20); Calcium 8.4 mg/dL (8.4-10.2); Carbon Dioxide 31 mmol/L (22-30); Chloride 97 mmol/L (98-107); Estimated CRCL calculation 97 ml/min; Estimated Glomerular Filt Rate > 60; Glucose 100 mg/dL (65-110); Magnesium 2.0 mg/dL (1.6-2.3); Potassium 3.6 mmol/L (3.4-5.0); Sodium 134 mmol/L (137-145)
[2025-01-27] MEDS: EMPAGLIFLOZIN 10 MG TABLET PO (08:34)
[2025-01-27] MEDS: SPIRONOLACTONE 25 MG TABLET PO (08:34)
[2025-01-27] MEDS: SACUBITRIL/VALSARTAN 97-103 MG TABLET 1 TAB PO (08:34)
[2025-01-27] MEDS: FUROSEMIDE INJ 40 MG/4 ML VIAL IV PUSH (08:34)
[2025-01-27] MEDS: ENOXAPARIN 40 MG/0.4 ML SYRINGE SUB-Q (08:34)
--- NOTE | 2025-01-27 11:43 | PC.NURSE ---
Discharge education printed out and given to patient this morning. Education that was printed was not added to the discharge packet. Printed early so that patient could take some time to read over the education for his condition, discharge instructions, lifevest information. Pt very agreeable to reading the education.
--- NOTE | 2025-01-27 12:51 | P.PNCA_ITS ---
Progress Note: A&P Assessment and Plan (1) Cardiomyopathy: Code(s): I42.9 - Cardiomyopathy, unspecified Status: Acute Assessment and Plan: Chronic systolic heart failure. Etiology unknown. * Needs an ischemic evaluation at some point * He is already on medical therapy with Entresto, spironolactone, Coreg * Continue jardiance 10mg daily * LifeVest in place * Will repeat echo as outpatient in 2 months to reassess LV function * OK for discharge from a cardiac perspective. (2) Acute exacerbation of CHF (congestive heart failure): Code(s): I50.9 - Heart failure, unspecified Status: Acute Assessment and Plan: Acute on chronic exacerbation of systolic heart failure. He also has multivalvular disease with moderate aortic valve regurgitation, moderate mitral valve regurgitation, mild tricuspid valve regurgitation. Improving with IV diuresis. * Shift to p.o. furosemide today. 40mg daily. * Daily weights * Strict intake and output * CHF counseling (3) Acute hypoxic respiratory failure: Code(s): J96.01 - Acute respiratory failure with hypoxia Status: Acute Assessment and Plan: Secondary to above. Improved-now on room air (4) Hypertension: Code(s): I10 - Essential (primary) hypertension Status: Acute Assessment and Plan: At goal. Subjective Date/time seen: 01/27/25 12:51 Interval history: Cardiology follow up visit Date of service 01/26/2025: Feeling better today. Able to lie flat without having any shortness of breath. No chest pain, palpitations. Date of service 01/27/2025: Continues to feel well. No shortness of breath, chest pain, palpitations. Review of Systems Review of Systems: All systems reviewed & are unremarkable except as noted in HPI and below Exam Const: General: comfortable, no acute distress, alert and awake Orientation/consciousness: patient oriented x3 Other: He is morbidly obese HENMT: Head: normal to inspection Eyes: General: appearance normal, both eyes and all related structures Pupils: Equal, round and reactive pupils present Neck: Neck: normal visual inspection and supple Carotids: normal carotid upstroke Resp: Effort & Inspection: normal respiratory effort Auscultation: clear to auscultation bilaterally Cardio: Rate: regular rate Rhythm: regular rhythm Heart sounds: S1 normal heart sound present, S2 normal heart sound present and no murmurs GI: Auscultation: normal bowel sounds Skin: General skin exam: normal color Neuro: General: patient oriented x3 Cranial nerves: Yes Equal, round and reactive pupils present Extrem: Other: trace pedal edema Psych: Appearance: grossly normal Mental Status: mental status grossly normal Objective Data Vital Signs Vital Signs: Vital Signs - 24 hr 01/26/25 14:00 01/26/25 14:25 01/26/25 16:00 Temperature 36.6 C Pulse Rate 69 71 Respiratory Rate 20 Blood Pressure 136/88 Pulse Oximetry 96 96 Oxygen Delivery Room Air Oxygen Flow Rate 01/26/25 16:00 01/26/25 16:00 01/26/25 20:00 Temperature 36.9 C Pulse Rate 73 81 Respiratory Rate 16 Blood Pressure 130/81 Pulse Oximetry 95 Oxygen Delivery Room Air Oxygen Flow Rate 01/26/25 20:00 01/26/25 20:00 01/26/25 20:26 Temperature Pulse Rate 79 79 Respiratory Rate Blood Pressure Pulse Oximetry Oxygen Delivery Room Air Oxygen Flow Rate 01/26/25 22:00 01/26/25 23:44 01/27/25 00:00 Temperature 36.9 C Pulse Rate 81 75 Respiratory Rate 16 Blood Pressure 110/77 Pulse Oximetry 93 100 Oxygen Delivery Nasal Cannula Oxygen Flow Rate 4 01/27/25 00:00 01/27/25 01:13 01/27/25 02:00 Temperature Pulse Rate 71 68 Respiratory Rate Blood Pressure Pulse Oximetry 94 Oxygen Delivery Nasal Cannula Oxygen Flow Rate 4 01/27/25 04:00 01/27/25 04:00 01/27/25 04:00 Temperature 37.0 C Pulse Rate 63 64 Respiratory Rate 18 Blood Pressure 124/85 Pulse Oximetry 100 100 Oxygen Delivery Nasal Cannula Oxygen Flow Rate 4 01/27/25 06:00 01/27/25 07:51 01/27/25 08:00 Temperature 36.7 C Pulse Rate 57 L 63 Respiratory Rate 20 Blood Pressure 140/71 Pulse Oximetry 93 Oxygen Delivery Room Air Oxygen Flow Rate 01/27/25 08:00 01/27/25 08:33 01/27/25 10:00 Temperature Pulse Rate 78 76 Respiratory Rate Blood Pressure Pulse Oximetry 93 Oxygen Delivery Room Air Oxygen Flow Rate 01/27/25 12:00 01/27/25 12:14 Temperature 36.1 C L Pulse Rate 70 Respiratory Rate 20 Blood Pressure 118/65 Pulse Oximetry 92 Oxygen Delivery Room Air Oxygen Flow Rate Intake/Output Intake/Output: Intake & Output 01/24/25 01/25/25 01/26/25 01/27/25 23:59 23:59 23:59 23:59 Intake Total 880 1820 1842 980 Output Total 3550 2100 242 1200 Balance -2670 -280 -583 -220 Meds/Results Medications: Active Medications Generic Name Dose Route Start Last Admin Trade Name Freq PRN Reason Stop Dose Admin Acetaminophen 650 mg 01/24/25 14:06 01/25/25 10:22 Acetaminophen 325 Mg Tablet PO 650 mg Q6H PRN Administration Mild Pain (1-3) or Fever Carvedilol 25 mg 01/24/25 21:00 01/27/25 08:33 Carvedilol 25 Mg Tablet PO 25 mg Q12HR JACKIE Administration Empagliflozin 10 mg 01/27/25 09:00 01/27/25 08:34 Empagliflozin 10 Mg Tablet PO 10 mg DAILY JACKIE Administration Enoxaparin Sodium 40 mg 01/25/25 09:00 01/27/25 08:34 Enoxaparin 40 Mg/0.4 Ml Syringe SUB-Q 40 mg DAILY JACKIE Administration Furosemide 40 mg 01/28/25 09:00 Furosemide 40 Mg Tablet PO DAILY JACKIE Sacubitril/Valsartan 1 tab 01/24/25 21:00 01/27/25 08:34 Sacubitril/Valsartan 97-103 Mg Tablet PO 1 tab Q12HR JACKIE Administration Spironolactone 25 mg 01/25/25 09:00 01/27/25 08:34 Spironolactone 25 Mg Tablet PO 25 mg DAILY JACKIE Administration Radiology Results: ITS Impressions Chest X-Ray 01/24/25 07:33 IMPRESSION: 1. Likely congestive heart failure with cardiomegaly and mild to moderate basilar predominant pulmonary edema. Superimposed pneumonia not excludable. 2. Indeterminate 3.5 cm masslike opacity projecting over the medial left lower lung zone. Would recommend chest CT for further evaluation. Chest CTA 01/24/25 08:19 IMPRESSION: 1. No pulmonary embolism. Sensitivity decreased in some of the smaller subsegmental pulmonary arteries due to combination of suboptimal contrast opacification and small mild respiratory motion. 2. Congestive heart failure with cardiomegaly and mild to moderate pulmonary edema. 3. Enlargement of the central and right pulmonary arteries consistent with pulmonary arterial hypertension. Labs Labs: Laboratory Results - last 24 hr 01/27/25 03:20 Sodium 134 L Potassium 3.6 Chloride 97 L Carbon Dioxide 31 H Anion Gap 6 BUN 22 H Creatinine 1.19 Estim Creat Clear Calc 97 Estimated GFR > 60 Glucose 100 Calcium 8.4 Phosphorus 3.5 Magnesium 2.0 Albumin 3.5
--- NOTE | 2025-01-27 14:37 | P.DS_ITS ---
DS: Admitting Diagnosis Discharge Date 01/27/25 Admitting Diagnosis Shortness of breath DS: Discharge Diagnosis Discharge Diagnosis (1) Acute hypoxic respiratory failure: Code(s): J96.01 - Acute respiratory failure with hypoxia Status: Acute (2) Acute exacerbation of CHF (congestive heart failure): Code(s): I50.9 - Heart failure, unspecified Status: Acute (3) Hypertension: Code(s): I10 - Essential (primary) hypertension Status: Acute DS: Summary Hospital Course Reason for hospitalization: 59yo male who presents to the ED with complaints of shortness of breath. Please see H&P for details. Hospital Course: Patient presented with SOB and found to have acute respiratory failure treated with supplemental O2 by EMS. VBG showing 7.27/65/<27/29 and was started on bipap in ED with improvement. BNP 2400. Influenza, RSV, COVID PCR was negative. CXR showed likely CHF with cardiomegaly and [id number] basilar predominant pulmonary edema. Possible mass LLL. CTA chest showing no PE or lung mass but CHF with CMP and mild-moderate pulmonary edema and possible pulm arterial HTN. He was started on IV Lasix with good response and able to be weaned to room air. Possible sleep apnea so ApneaLink performed showing AHI 38 and RI 40. He spent 53 minutes with SpO2 <88% on 2L (but increased to 4L during the study due to hypoxia). Repeat Apnea link on 4L O2 showing improvement with hypoxia. Spoke with Pulmonary and Respiratory Care team. We need an overnight oximetry on room air for patient to qualify for home oxygen at night and this will be arranged as an outpatient. Pulmonary will be glad to follow up with him to get him set up for a formal sleep study. He would most likely not be able to qualify for Trilogy at this time. It was felt that his respiratory failure was related to acute congestive heart failure combined diastolic and systolic and possibly from untreated ONI. Echo with EF 30-35%, abnormal diastolic fxn, moderate AI, moderate MR but no pulmonary HTN. Cardiology consulted. He was started on IV Lasix with good diuresis. He was already on Entresto, Coreg and Aldactone which was continued. Empagliflozin added. LifeVest was recommended and patient was agreeable. He was fitted and instructions provided. He had clinical improvement. He overall did well and was able to be discharged on 01/27/25. Discharge instructions discussed including side effects of medications with patient and all questions answered. Status at Discharge Cognitive/behavioral status at discharge: stable Time Spent with Patient Time attestation: Total time spent providing and/or coordinating discharge services: 35 minutes Time spent: Greater than 30 minutes Exam Narrative: AF 97.0 118/65 70 20 92% ra Gen - NARD Chest - CTA bilaterally, nml RR CV - RRR S1/S2. Telemetry showing a 8 beat run and a 5 beat run of NSVT and PVCs Abd - Soft, obese, NT Ext - trace pedal edema Psych - Nml mood and affect Skin - Warm and dry DS: Data Data Completed and Pending Labs on day of discharge: Labs from last 24 hours 01/27/25 03:20 Sodium 134 L Potassium 3.6 Chloride 97 L Carbon Dioxide 31 H Anion Gap 6 BUN 22 H Creatinine 1.19 Estim Creat Clear Calc 97 Estimated GFR > 60 Glucose 100 Calcium 8.4 Phosphorus 3.5 Magnesium 2.0 Albumin 3.5 Preliminary micro results at discharge 01/24/25 12:05 Blood Culture - Preliminary Blood 01/24/25 12:03 Blood Culture - Preliminary Blood Discharge Plan Discharge Attending physician on discharge: Celso Traylor Consulting providers: Jasbir Ambriz; Alina Cooper Discharging Clinician: Celso Traylor Anticipated Discharge Date/Time: 01/27/25 14:47 Patient Disposition: Home Activity: as tolerated Diet: heart healthy Discharge Instructions: You will be going home with LifeVest. Use as directed. Take precautions to avoid falls. Rise slowly from a lying or sitting position. Pause before standing or walking. Check daily morning weights after voiding. Call your doctor if you gain more than 3 lb in 2 days or 5 lb in 1 week. Contact your doctor or call 911 and come to the Emergency Room if you have increasing shortness of breath or other worrisome symptoms. Avoid NSAIDs (ibuprofen, naproxen, Aleve). Tylenol is safe to take. You will be having a home sleep study (called an Overnight Oximetry Test) to see if you qualify for oxygen at night. You do NOT need oxygen during the day. Follow-up with your primary care provider in 1-2 weeks. Please call for appointment. Follow-up with Cardiology (either Dr Laurent or Financial Reporting Accountant here at [place] in 2- 4 weeks. Please call for an appointment. Follow-up with Pulmonary in 1-2 weeks. Please call for an appointment. Please call your doctor and arrange for an outpatient sleep study Thank you for using [facility] for your health care needs. Patient Instructions: Antibiotic Form, Heart Failure (GEN) Patient Language: Tristanian Stand Alone Forms: General Discharge Information Follow-up/Referrals: Jadyn Cason MD [Physician, Pulmonology] - Call for Appointment Alina Cooper APN-C [Advanced Practice Nurse, Cardiology] - Call for Appointment Jasbir Ambriz MD [Physician, Family Practice] - Call for Appointment Discharge Medications: New furosemide 40 mg Tablet 40 mg PO DAILY Qty: 30 1RF Jardiance 10 mg Tablet 10 mg PO DAILY Qty: 30 1RF Continued carvedilol 25 mg tablet 25 mg PO Q12H sacubitril-valsartan [Entresto] 97-103 mg tablet 1 tablet PO BID spironolactone 25 mg tablet 25 mg PO DAILY Discontinued hydrochlorothiazide 25 mg tablet 25 mg PO DAILY Other Ambulatory Orders: Basic Metabolic Panel (Routine) Timeframe: [id number] Location: Determined by Patient Ordered By: Celso Traylor Date of admission: 01/24/25 08:56 Primary Care Provider: PHYSICIAN,JALOUSIES INSTALLER Admitting Provider: Loi Vogel Attending physician on admission: Loi Vogel Condition: Stable Hospitalist MIPS Heart Failure (Exclusion) Patient has history of Heart Transplant or Left Ventricular Assistive Device?: No IF YES, STOP HERE Heart Failure (Qualifier) Patient has current or prior documentation of LVEF less than or equal to 40%, or mod/servere depressed LVSF?: Yes IF NO, STOP HERE If Yes, Heart Failure (Qualifier) Patient was prescribed or already taking an Angiotensin-Converting Enzyme (DONALD) Inhibitor, or Antiotensin Receptor Karel (ARB): Yes Patient was prescribed or already taking bisoprolol, carvedilol, or sustained release metoprolol succinate: Yes
--- NOTE | 2025-01-27 15:38 | PCRCNOTE ---
Overnight oximetry study to be performed in the patient's home tonight by [facility]. Office phone [phone]. Rep ([facility]) [phone].
--- NOTE | 2025-02-01 10:33 | PC.NURSE ---
Blood cx show no growth. Dr. Layton rick.
== END 2025-01-27 18:30 | disposition home or self-care (01) | DRG 291 ==
LOC: ANHED 08:59 → ANHIMU 09:32
PROVIDERS: Emergency Medicine; Admitting Provider Internal Medicine; Emergency Provider Emergency Medicine; Visit Provider Internal Medicine
DX: I11.0 Hypertensive heart disease with heart failure (principal); I50.43 Acute on chronic combined systolic (congestive) and diastolic (congestive) heart failure; J96.01 Acute respiratory failure with hypoxia; Z68.43 Body mass index [BMI] 50.0-59.9, adult; E66.01 Morbid (severe) obesity due to excess calories; G47.33 Obstructive sleep apnea (adult) (pediatric); I08.3 Combined rheumatic disorders of mitral, aortic and tricuspid valves; I43 Cardiomyopathy in diseases classified elsewhere; I27.21 Secondary pulmonary arterial hypertension; Z79.84 Long term (current) use of oral hypoglycemic drugs
CPT/HCPCS: 36415; 36600; 71045; 71275; 80053; 80069; 82375; 82805; 83050; 83605; 83735; 83880; 84132; 84484; 85018; 85025; 85610; 85730; 87040; 87637; 93005; 94002; 94003; 94762; 96374; 97161; 99291; A9270; C8929; J1650; J1938; Q9957; Q9967